=== PATIENT | male | born 1935 | race Caucasian/White ===

== ENCOUNTER 2016-12-24 22:00 | Inpatient (IN) | payer MEDICARE, BC ==
[~2016-12-24] VITALS: Ht 175.3 cm; Wt 88.5 kg
[~2016-12-24 22:00] MED LIST: ACET325T9 PO; ASPI-630 PO; ATOR40TA59 PO; BUPR150T11 PO; CALC1TAB70 PO; CALC667C PO; CHOL10003 PO; CHOL500021 PO; CLIN300C8 PO; CLOP75TA57 PO; CYAN10005 PO; FLUT15.88 NS; FURO-69 PO; INSU100I13 SQ; INSU100I17 SQ; IPRA3AMP NEB; IPRA4AER INH; MAGN400T3 PO; MENT118G TP; NYST15CR TP; OMEP20TA8 PO; [UNRECOGNIZED DRUG - CODE] TP
[2016-12-24] MEDS ORDERED: ACETAMINOPHEN 325 MG TABLET PO PRN ×2 (22:45→23:00)
[2016-12-24] MEDS ORDERED: METHYL SALICYLATE/MENTHOL TOPICAL OINTMENT 29GM TUBE. TP PRN (22:45)
[2016-12-24] MEDS ORDERED: MAGNESIUM HYDROXIDE 2,400 MG/30 ML ORAL.SUSP. PO PRN (22:45)
[2016-12-24] MEDS ORDERED: MAG HYDROX/AL HYDROX/SIMETH 30 ML ORAL.SUSP PO PRN (22:45)
[2016-12-24] MEDS ORDERED: NON FORMULARY ITEM (Menthol (Biofreeze) 118 ML) TP PRN (23:00)
[2016-12-24] MEDS ORDERED: DIMETHICONE TP PRN (23:00)
[2016-12-24] MEDS ORDERED: HYDROcodone/APAP 5/325MG 1 TAB TABLET PO PRN (23:00)
[2016-12-24] MEDS ORDERED: CYCL1DRO EACHEYE (23:37)
[2016-12-24] MEDS ORDERED: PANT40TA5 PO (23:37)
[2016-12-24] MEDS ORDERED: ATOR20TA58 PO (23:37)
[2016-12-24] MEDS ORDERED: HYDR-2758 PO (23:37)
[2016-12-24] MEDS ORDERED: PROP10DR3 EACHEYE (23:37)
[2016-12-24] MEDS ORDERED: FLUT1DIS IH (23:37)
[2016-12-24] MEDS ORDERED: LORA0.5T PO (23:37)
[2016-12-24] MEDS ORDERED: ERGO500027 PO (23:37)
[2016-12-24] MEDS ORDERED: ISOS30TA4 PO (23:37)
[2016-12-24] MEDS ORDERED: ESCITALOPRAM OX10 MG PO (23:37)
[2016-12-24] MEDS ORDERED: GUAI600T6 PO (23:37)
[2016-12-24] MEDS ORDERED: QUET25TA5 PO (23:37)
[2016-12-24] MEDS ORDERED: POLY255P PO (23:37)
[2016-12-24] MEDS ORDERED: TAMS0.4C2 PO (23:37)
[2016-12-24] MEDS ORDERED: DEXT1DRO7 OU (23:37)
[2016-12-24] MEDS ORDERED: ALBUTEROL SULFATE 2.5 MG/3 ML NEBU. NEB PRN (23:45)
[2016-12-24] MEDS ORDERED: POLYVINYL ALCOHOL 1.4% OPHTH SOLUTION 15ML BOTTLE. OU PRN (23:45)
[2016-12-24] MEDS ORDERED: LORazepam 0.5 MG TABLET PO PRN (23:45)
[2016-12-25 00:54] LABS: BASO # 0.1 x10^3/uL (0.0-0.2); BASO % 2 % (0-3); EOS # 0.6 x10^3/uL (0.0-0.7); EOS % 9 % (0-3); HEMATOCRIT 32.4 % (39.0-53.0); HEMOGLOBIN 10.6 g/dL (13.0-17.5); LYMPH % 16 % (24-48); MEAN CORPUSCULAR HEMOGLOBIN 29 pg (25-35); MEAN CORPUSCULAR HGB CONC 33 g/dL (31-37); MEAN CORPUSCULAR VOLUME 88 fL (79-100); MONO # 0.6 x10^3/uL (0.0-1.1); MONO % 9 % (0-9); NEUT % 65 % (31-73); PLATELET COUNT 205 x10^3/uL (140-400); RED CELL DISTRIBUTION WIDTH 15.7 % (11.5-14.5); WHITE BLOOD COUNT 6.2 x10^3/uL (4.0-11.0)
[2016-12-25 01:17] LABS: ALBUMIN 2.2 g/dL (3.4-5.0); ALBUMIN/GLOBULIN RATIO 0.6 (1.0-1.7); CALCIUM 8.2 mg/dL (8.5-10.1); CREATININE 1.9 mg/dL (0.7-1.3); GFR 34.4; MAGNESIUM 1.9 mg/dL (1.8-2.4); TOTAL BILIRUBIN 0.2 mg/dL (0.2-1.0); TOTAL PROTEIN 5.8 g/dL (6.4-8.2)
[2016-12-25 02:32] VITALS: BP 142/64
[2016-12-25 06:36] VITALS: BP 107/65
[2016-12-25 07:21] LABS: BILIRUBIN,URINE NEG (NEG); CLARITY,URINE CLEAR; COLOR,URINE YELLOW; GLUCOSE,URINE NEG (NEG)
[2016-12-25 07:22] LABS: BACTERIA,URINE 0 /HPF (0-FEW); NITRITE,URINE NEG (NEG); RBC,URINE 0 /HPF (0-2); UROBILINOGEN,URINE 0.2 mg/dL (0.2 mg/dL); WBC,URINE 0 /HPF (0-4)
[2016-12-25] MEDS: BUDESONIDE 0.5 MG/2 ML NEBU NEB SCH ×2 (08:00→20:10)
[2016-12-25] MEDS: ALBUTEROL SULFATE 2.5 MG/3 ML NEBU. NEB SCH ×4 (08:00→20:10)
[2016-12-25] MEDS ORDERED: NON FORMULARY ITEM (Fluticasone/Salmeterol (Advair 100-50 Diskus) 1 PUFF) IH SCH (09:00)
[2016-12-25] MEDS ORDERED: CLOPIDOGREL BISULFATE 75 MG TABLET PO SCH (09:00)
[2016-12-25] MEDS ORDERED: ASPIRIN 81 MG TAB.CHEW PO SCH (09:00)
[2016-12-25] MEDS ORDERED: OMEPRAZOLE PO SCH (09:00)
[2016-12-25 09:05] VITALS: BP 149/57
[2016-12-25 10:05] LABS: THYROID STIM HORMONE (TSH) 1.394 uIU/mL (0.358-3.740)
[2016-12-25] MEDS: CALCIUM ACETATE 667 MG CAPSULE PO SCH ×3 (10:54→17:06)
[2016-12-25] MEDS: PANTOPRAZOLE 40 MG TABLET. PO SCH (10:54)
[2016-12-25] MEDS: cycloSPORINE 0.05% OPTH 1 DROP DROPERETTE OU SCH ×2 (10:55→21:31)
[2016-12-25] MEDS: POLYVINYL ALCOHOL 1.4% OPHTH SOLUTION 15ML BOTTLE. OU SCH ×4 (10:55→21:29)
[2016-12-25] MEDS: ESCITALOPRAM 10 MG TABLET. PO SCH (10:55)
[2016-12-25] MEDS: ISOSORBIDE MONONITRATE ER 30 MG TAB.ER.24H PO SCH (10:55)
[2016-12-25] MEDS: QUEtiapine 25 MG TABLET. PO SCH ×2 (10:56→21:24)
[2016-12-25] MEDS: POLYETHYLENE GLYCOL 3350 17 GM PACKET. PO SCH (10:56)
[2016-12-25] MEDS: CALCIUM CARB/VIT D3 500/200 TABLET PO SCH ×2 (10:56→21:24)
[2016-12-25] MEDS: MAGNESIUM OXIDE 400 MG TABLET PO SCH (10:56)
[2016-12-25] MEDS: CYANOCOBALAMIN (VITAMIN B-12) 1,000 MCG TABLET. PO SCH (10:57)
[2016-12-25] MEDS: INSULIN DETEMIR 300 UNITS/3 ML INSULN.PEN. SQ SCH ×2 (10:57→21:24)
[2016-12-25] MEDS: NYSTATIN 100,000 UNIT/GM TOPICAL CREAM 15GM TUBE. TP SCH ×2 (10:57→21:29)
--- NOTE | 2016-12-25 11:22 | PDOC ---
Exam Earl Demential Exam: Earl Note: Please also refer to the separate dictated note~for this date of service dictated separately.~Patient seen individually. Discussed the patient with Nursing staff reviewed the chart.~Reviewed interim history and current functioning. Reviewed vital signs,~Labs/ Radiology~and current medications noted below. Continue current treatment with the changes noted in the dictated addendum note Assessment: Vital Signs: Vital Signs Date Time Temp Pulse Resp B/P (MAP) Pulse Ox O2 Delivery O2 Flow Rate FiO2 12/25/16 09:05 97.7 80 20 149/57 (87) 95 12/25/16 06:36 Room Air I&O Intake and Output 12/25/16 07:00 Intake Total 0 ml Balance 0 ml Intake Oral 0 ml Labs: Laboratory Tests Test 12/24/16 23:59 12/25/16 04:56 12/25/16 07:40 White Blood Count 6.2 x10^3/uL (4.0-11.0) Red Blood Count 3.70 x10^6/uL (4.30-5.70) L Hemoglobin 10.6 g/dL (13.0-17.5) L Hematocrit 32.4 % (39.0-53.0) L Mean Corpuscular Volume 88 fL (79-100) Mean Corpuscular Hemoglobin 29 pg (25-35) Mean Corpuscular Hemoglobin Concent 33 g/dL (31-37) Red Cell Distribution Width 15.7 % (11.5-14.5) H Platelet Count 205 x10^3/uL (140-400) Neutrophils (%) (Auto) 65 % (31-73) Lymphocytes (%) (Auto) 16 % (24-48) L Monocytes (%) (Auto) 9 % (0-9) Eosinophils (%) (Auto) 9 % (0-3) H Basophils (%) (Auto) 2 % (0-3) Neutrophils # (Auto) 4.0 x10^3uL (1.8-7.7) Lymphocytes # (Auto) 1.0 x10^3/uL (1.0-4.8) Monocytes # (Auto) 0.6 x10^3/uL (0.0-1.1) Eosinophils # (Auto) 0.6 x10^3/uL (0.0-0.7) Basophils # (Auto) 0.1 x10^3/uL (0.0-0.2) Sodium Level 143 mmol/L (136-145) Potassium Level 5.0 mmol/L (3.5-5.1) Chloride Level 106 mmol/L (98-107) Carbon Dioxide Level 34 mmol/L (21-32) H Anion Gap 3 (6-14) L Blood Urea Nitrogen 32 mg/dL (8-26) H Creatinine 1.9 mg/dL (0.7-1.3) H Estimated GFR (Cockcroft-Gault) 34.4 BUN/Creatinine Ratio 17 (6-20) Glucose Level 163 mg/dL (70-99) H Calcium Level 8.2 mg/dL (8.5-10.1) L Magnesium Level 1.9 mg/dL (1.8-2.4) Iron Level 33 ug/dL (65-175) L Total Iron Binding Capacity 207 ug/dL (250-450) L Iron Saturation 16 % (15-34) Total Bilirubin 0.2 mg/dL (0.2-1.0) Aspartate Amino Transferase (AST) 11 U/L (15-37) L Alanine Aminotransferase (ALT) 12 U/L (16-63) L Alkaline Phosphatase 90 U/L (46-116) Total Protein 5.8 g/dL (6.4-8.2) L Albumin 2.2 g/dL (3.4-5.0) L Albumin/Globulin Ratio 0.6 (1.0-1.7) L Triglycerides Level 122 mg/dL (0-150) Cholesterol Level 102 mg/dL (0-200) LDL Cholesterol, Calculated 45 mg/dL (0-100) VLDL Cholesterol, Calculated 24 mg/dL (0-40) Non-HDL Cholesterol Calculated 69 mg/dL (0-129) HDL Cholesterol 33 mg/dL (40-60) L Cholesterol/HDL Ratio 3.0 Thyroid Stimulating Hormone (TSH) 1.394 uIU/mL (0.358-3.740) Urine Collection Type Unknown Urine Color Yellow Urine Clarity Clear Urine pH 7.5 Urine Specific [place] 1.015 Urine Protein >100 mg/dl (NEG-TRACE) Urine Glucose (UA) Neg mg/dL (NEG) Urine Ketones (Stick) Neg mg/dL (NEG) Urine Blood Neg (NEG) Urine Nitrite Neg (NEG) Urine Bilirubin Neg (NEG) Urine Urobilinogen Dipstick 0.2 mg/dL (0.2 mg/dL) Urine Leukocyte Esterase Neg (NEG) Urine RBC 0 /HPF (0-2) Urine WBC 0 /HPF (0-4) Urine Squamous Epithelial Cells None /LPF Urine Bacteria 0 /HPF (0-FEW) Glucose (Fingerstick) 96 mg/dL (70-99) Current Medications: Meds: Current Medications Acetaminophen (Tylenol) 650 mg PRN Q6HRS PRN PO PAIN / TEMP; Start 12/24/16 at 22:45 Multi-Ingredient Ointment (Analgesic [place]) 1 tiny PRN QID PRN TP MUSCLE PAIN; Start 12/24/16 at 22:45 Al Hydroxide/Mg Hydroxide (Mylanta Plus Xs) 15 ml PRN AFTMEALHC PRN PO DYSPEPSIA; Start 12/24/16 at 22:45; Status Cancel Magnesium Hydroxide (Milk Of Magnesia) 2,400 mg PRN QHS PRN PO CONSTIPATION; Start 12/24/16 at 22:45; Status Cancel Acetaminophen (Tylenol) 650 mg PRN Q6HRS PRN PO PAIN / TEMP; Start 12/24/16 at 23:00; Status UNV Aspirin (Children'S Aspirin) 81 mg DAILY PO ; Start 12/25/16 at 09:00 Atorvastatin Calcium (Lipitor) 20 mg QHS PO ; Start 12/25/16 at 21:00 Calcium Acetate (Phoslo) 667 mg TIDWMEALS PO ; Start 12/25/16 at 08:00 Calcium/Vitamin D (Oscal D 500mg/ 200uts) 1 tab BID PO ; Start 12/25/16 at 09:00 Clopidogrel Bisulfate (Plavix) 75 mg DAILY PO ; Start 12/25/16 at 09:00 Cyanocobalamin (Vitamin B-12) 1,000 mcg DAILY PO ; Start 12/25/16 at 09:00 Cyclosporine (Restasis) 1 drop BID OU ; Start 12/25/16 at 09:00 Ergocalciferol (Vitamin D2) 50,000 unit QWE PO ; Start 12/29/16 at 16:00 Furosemide (Lasix) 40 mg QODAY PO ; Start 12/26/16 at 09:00 Guaifenesin (Mucinex Er) 600 mg BID PO ; Start 12/25/16 at 09:00 Acetaminophen/ Hydrocodone Bitart (Lortab 5/325) 1 tab PRN Q6HRS PRN PO SEVERE PAIN; Start 12/24/16 at 23:00 Albuterol Sulfate (Ventolin) 2.5 mg PRN Q6HRS PRN NEB SHORTNESS OF BREATH; Start 12/24/16 at 23:45 Isosorbide Mononitrate (Imdur) 30 mg DAILY PO ; Start 12/25/16 at 09:00 Magnesium Oxide (Magnesium Oxide) 400 mg DAILY PO ; Start 12/25/16 at 09:00 Nystatin (Mycostatin) 1 tiny BID TP ; Start 12/25/16 at 09:00 Pantoprazole Sodium (Protonix) 40 mg DAILYAC PO ; Start 12/25/16 at 07:30 Polyethylene Glycol (miraLAX) 17 gm DAILY PO ; Start 12/25/16 at 09:00 Tamsulosin HCl (Flomax) 0.4 mg HS PO ; Start 12/25/16 at 21:00 Artificial Tears (Artificial Tears) 1 drop QID OU ; Start 12/25/16 at 09:00 Non-Formulary Medication 59 ml PRN DAILY PRN TP DRY SKIN / SCALING; Start at 23:00; Status UNV Non-Formulary Medication 1 puff BID IH ; Start 12/25/16 at 09:00; Stop 12/25/16 at 09:00; Status DC Insulin Detemir (Levemir) 10 units BID SQ ; Start 12/25/16 at 09:00 Non-Formulary Medication 118 ml PRN Q6HRS PRN TP PAIN; Start 12/24/16 at 23:00; Stop 12/24/16 at 23:51; Status DC Non-Formulary Medication 2 tab DAILY PO ; Start 12/25/16 at 09:00; Stop at 09:00; Status DC Artificial Tears (Artificial Tears) 1 drop PRN Q8HRS PRN OU DRY EYE; Start 12/24 at 23:45 Escitalopram Oxalate (Lexapro) 10 mg DAILY PO ; Start 12/25/16 at 09:00 Lorazepam (Ativan) 0.5 mg PRN Q8HRS PRN PO ANXIETY / AGITATION Last administered on 12/25/16t 09:23; Start 12/24/16 at 23:45 Quetiapine Fumarate (SEROquel) 12.5 mg BID PO ; Start 12/25/16 at 09:00 Albuterol Sulfate (Ventolin) 2.5 mg RTQID NEB ; Start 12/25/16 at 08:00 Budesonide (Pulmicort) 0.5 mg RTBID NEB ; Start 12/25/16 at 08:00 Olanzapine (ZyPREXA ZYDIS) 2.5 mg PRN Q2HR PRN PO ANXIETY / AGITATION; Start at 04:15 Haloperidol Lactate (Haldol) 5 mg 1X STAT IM ; Start 12/25/16 at 11:17; Stop at 11:18; Status UNV Active Scripts Active Reported Vitamin D2 (Ergocalciferol (Vitamin D2)) 50,000 Unit Capsule 50,000 Unit PO QWE Tamsulosin Hcl 0.4 Mg Cap.er.24h 0.4 Mg PO HS Systane Ultra 0.4-0.3% Eye Drp (Propylene Glycol/Peg 400) 10 Ml Drops 1 Drop EACHEYE PRN Q8HRS PRN Seroquel (Quetiapine Fumarate) 25 Mg Tablet 12.5 Mg PO BID Restasis (Cyclosporine) 1 Each Droperette 1 Drop EACHEYE BID Polyethylene Glycol 3350 255 Gm Powder 17 Gm PO DAILY Pantoprazole Sodium 40 Mg Tablet.dr 40 Mg PO DAILY Mucus ER (Guaifenesin) 600 Mg Tab.er.12h 600 Mg PO BID Hydrocodone-Apap 5-325 (Hydrocodone Bit/Acetaminophen) 1 Each Tablet 1 Tab PO PRN Q6HRS PRN Lorazepam 0.5 Mg Tablet 0.5 Mg PO PRN Q8HRS PRN Escitalopram Oxalate 10 Mg Tablet 10 Mg PO DAILY Isosorbide Mononitrate Er (Isosorbide Mononitrate) 30 Mg Tab.er.24h 30 Mg PO DAILY Artificial Tears (Dextran 70/Hypromellose) 1 Each Droperette 1 Each OP QID Advair 100-50 Diskus (Fluticasone/Salmeterol) 1 Each Disk.w.dev 1 Puff IH BID Furosemide 40 Mg Tablet 40 Mg PO QODAY Atorvastatin Calcium 20 Mg Tablet 20 Mg PO QHS Plavix (Clopidogrel Bisulfate) 75 Mg Tablet 1 Tab PO DAILY Oyster Shell 500 Mg + Vit D Tb (Calcium Carbonate/Vitamin D3) 1 Each Tablet 1 Each PO BID Omeprazole 20 Mg Tablet.dr 2 Tab PO DAILY Nystatin 15 Gm Cream..g. 1 Tiny TP BID Magnesium Oxide 400 Mg Tablet 1 Tab PO DAILY Lantus Solostar (Insulin Glargine,Hum.rec.anlog) 100 Unit/1 Ml Insuln.pen 10 Unit SQ BID Duoneb 0.5-3(2.5) Mg/3 Ml (Albuterol/Ipratropium) 3 Ml Ampul.neb 3 Ml NEB PRN Q6HRS PRN Vitamin B-12 (Cyanocobalamin (Vitamin B-12)) 1,000 Mcg Tablet 1 Tab PO DAILY Calcium Acetate 667 Mg Capsule 667 Mg PO TIDWMEALS Biofreeze (Menthol) 118 Ml Gel..ml. 118 Ml TP PRN Q6HRS PRN Aspirin 81 Mg Tab.chew 81 Mg PO DAILY Aloe [place] Skin Conditioner 2 (Dimethicone) 59 Ml Lotion 59 Ml TP PRN DAILY PRN Tylenol (Acetaminophen) 325 Mg Tablet 650 Mg PO PRN Q6HRS PRN KATERINE TANG MD Dec 25, 2016 11:22
[2016-12-25] MEDS ORDERED: HALOPERIDOL LACT 5 MG/ML VIAL. IM STA (11:28)
[2016-12-25 12:08] LABS: T3 TOTAL 83 ng/dL (71-180); THYROXINE 5.7 ug/dL (4.5-12.0)
--- NOTE | 2016-12-25 15:12 | RAD ---
Indication fall. Headache. Dizziness. Noncontrast images of the head were obtained. Note is made of a previous examination 03/15/2016. The study is slightly degraded by motion Soft tissue injury over the left forehead is noted. An acute calvarial finding is not seen. There is some mucosal thickening seen associated with both maxillary sinuses and partial opacification of the left sphenoid sinus and left ethmoid air cells. Findings suggest sinusitis. There is no subdural or epidural hematoma. There is underlying atrophy. There is increased lucency in the deep white matter compatible with microvascular disease. There is no mass or midline shift. No hemorrhage is seen. Acute intracranial finding is not apparent. IMPRESSION: Slightly limited study secondary to motion. No acute intracranial finding seen. Chronic changes in the head are noted. Suspect sinusitis PQRS Compliance Statement: One or more of the following individualized dose reduction techniques were utilized for this examination: 1. Automated exposure control 2. Adjustment of the mA and/or kV according to patient size 3. Use of iterative reconstruction technique
[2016-12-25 16:02] VITALS: BP 129/58
[2016-12-25 17:08] LABS: HEMOGLOBIN A1C 6.1 % (4.8-5.6)
--- NOTE | 2016-12-25 19:04 | EKG ---
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
--- NOTE | 2016-12-25 20:47 | HP ---
ADMIT DATE: 12/25/2016 PSYCHIATRIC ADMISSION HISTORY/EVALUATION IDENTIFYING DATA: The patient is a 81-year-old male who was admitted as an emergency by the Emergency Room at [facility] after he was referred there from [facility] on account of repeatedly putting himself on the floor when he does not get his way. He was refusing medications, verbally abusive to staff, and caregivers. Reportedly, he does not like his diet, which is pureed, refuses to eat it. He has been more confused, psychotic, aggressive, and has failed outpatient psychiatric interventions, referred by Dr. Quintero for inpatient psychiatric stabilization. 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 He has been residing at [facility] for some time. He was previously admitted to ICU via the ER once he became aggressive at the [facility], but then this was in 02/2016. In the ICU, he was stabilized return back to the [place] and I followed him there. Over the past several days, he has been increasingly agitated, angry, and belligerent. He has had some sleep and appetite changes. Refusing to answer questions. No clear symptoms of bipolar disorder, suicidal, or homicidal ideation. PAST PSYCHIATRIC HISTORY: As above. MEDICAL HISTORY: Positive for congestive heart failure. In fact, the patient was admitted directly from the [place] [facility] as he was felt to be medically stable at the [facility]. Medical history is otherwise positive for subdural hematomas by history of GERD, diabetes mellitus, hypertension, status post pneumonia, status post recurrent UTIs. PAST SURGICAL HISTORY: Noncontributory. DRUG ALLERGIES: PENICILLIN. CODE STATUS: DNR. FAMILY HISTORY: Noncontributory. CURRENT PSYCHOTROPICS: Lexapro 10 mg a day, Ativan 0.5 mg q.8 hours p.r.n., Seroquel 12.5 mg b.i.d. MENTAL STATUS EXAM: The patient was seen individually in his room the evening of 12/25/2016. He has been quite sedated because he fell earlier in the day sustained a scalp hematoma. Dr. Bhatti was consulted. CT head negative and he is on one-on-one status to monitor neuro checks and vital signs. He also received 5 mg of Haldol and is quite sedated. He seems to recognize the nursing clinical director who is also taking care of him at the [facility] and now works here. Not verbal at all as I met with him sedated. Insight, judgment, recent memory is impaired. Language function intact. Attention span short. Mood and affect remains somewhat withdrawn at this time, but was quite labile earlier in the day, but this note covers elements not covered in my initial note. IMPRESSION: Major neurocognitive disorder, Alzheimer, vascular with depression, delusion, behavioral disturbance; anxiety disorder, unspecified; impulse control disorder, unspecified; history of major depressive disorder with psychotic features. Rest of diagnoses as above, status post fall with scalp hematoma. TREATMENT PLAN: Admit to the geropsychiatry unit. I will see the patient daily individually from a psychiatric standpoint medical followup per Dr. Sanders/Dr. Bhatti. Continue current psychotropics. Add Zyprexa p.r.n. Consider Depakote as a mood stabilizer for his aggression and make further changes depending on his progress. KATERINE TANG MD DR: GRETCHEN/errol JOB#: [id number] / [id number]
[2016-12-25] MEDS: TAMSULOSIN 0.4 MG CAP.ER.24H. PO SCH (21:29)
[2016-12-25] MEDS: ATORVASTATIN CALCIUM 20 MG TABLET PO SCH (21:29)
--- NOTE | 2016-12-26 01:42 | CONS ---
DATE OF CONSULTATION: 12/25/2016 REASON FOR CONSULTATION: Medical management. HISTORY OF PRESENT ILLNESS: This is a 81-year-old male patient, a resident at [facility] in [place], who was [facility] on the account of worsening agitation, combativeness, noncompliance, anger, apparently putting himself on the floor when not getting his way, refusing meals and verbally abusive to the staff and caregivers. He does not like his diet, which is pureed and refuses to eat it. When we entered his room, he was very angry, threatening and has already fallen and has had a hematoma on the left forehead and therefore, I could not really examine him properly for fear that he might fall again. PAST MEDICAL HISTORY: Significant for hypertension, congestive heart failure, COPD, chronic subdural hematoma, macular degeneration, type 2 diabetes and dry eye. He is also known to have gastroesophageal reflux disease, benign prostatic hypertrophy, has had recent pneumonia, bradycardia, and major depressive disorder. He is also obviously known to have dementia with behavioral disorder. PAST SURGICAL HISTORY: Unobtainable. ALLERGIES: He is allergic to PENICILLIN. MEDICATIONS: He is currently on following medications: He is on Tylenol 650 mg every 6 hours, aspirin 81 mg once a day, atorvastatin calcium 20 mg at bedtime, calcium acetate 667 mg 3 times a day with meals, Plavix 75 mg once a day, cyanocobalamin 1000 mcg tablet once a day, cyclosporine for Restasis 1 drop to both eyes twice a day, artificial tears 1 drop to both eyes 4 times a day, Dimethicone for Aloe [place] skin conditioner topically daily p.r.n., ergocalciferol for vitamin D2 50,000 units p.o. once a week, citalopram oxalate 10 mg daily, Advair Diskus 100/50 one puff twice a day, furosemide 40 mg once every other day, Mucinex 600 mg twice a day, hydrocodone/APAP 5/325 one tablet every 6 hours. He is on Lantus insulin 10 units twice a day, ipratropium bromide-albuterol inhaler 0.5-2.5 mg in 3 mL by nebulizer every 6 hours, isosorbide mononitrate 30 mg once a day, lorazepam 0.5 mg every 8 hours, magnesium oxide 400 mg once a day, omeprazole 20 mg once a day, nystatin cream applied topically twice a day, Protonix 40 mg once a day, polyethylene glycol 17 grams p.o. daily, Systane eye drops 1 drop to both eyes every 8 hours as needed, Seroquel 12.5 mg twice a day and Flomax 0.4 mg at bedtime. FAMILY HISTORY: Unobtainable. SOCIAL HISTORY: He is apparently a resident at [facility], no further details are available. PHYSICAL EXAMINATION: GENERAL: When I examined him this afternoon, he was sitting slightly propped up in his bed, in no apparent distress, slightly pale, but no jaundice, cyanosis, or thyromegaly. No jugular venous distention. No limb edema. VITAL SIGNS: His heart rate was 80, blood pressure 149/57, temperature was 97.7, respiratory rate 20, and oxygen saturation was 95%. HEENT: I could not really examine him; however, he has clearcut subcutaneous hematoma on the left forehead. He was extremely angry and agitated and threatening to john us out of the room. NEUROLOGIC: All his cranial nerves seem to be intact. He moves all extremities without difficulty or lateralizing sign. LABORATORY DATA: Showed a white cell count of 6200, hemoglobin 10.6, hematocrit 32, MCV 88, and platelet count of 205,000. His chemistry showed a serum sodium 143, potassium 5, chloride 106, bicarbonate 34, anion gap of 3, BUN 32, creatinine 1.9, estimated GFR was 34 mL per minute, his glucose 163, calcium was 8.2, magnesium was 1.9. Total bilirubin, AST, ALT, alkaline phosphatase were normal. Total protein was 5.8, albumin 2.2. His triglycerides were 122, total cholesterol was 102, LDL cholesterol was 45, VLDL was 24, and HDL cholesterol was 33. His cholesterol to HDL cholesterol ratio was 3. His TSH was 1.394, total T4 was 5.7, total T3 was 83. Serum iron was 33, total iron binding capacity was 207 and percent saturation was 16%. Urinalysis was essentially unremarkable. ASSESSMENT: He apparently fell this morning and we did a stat CT scan of the head without contrast. Given the fact that he is known to have chronic subdural hematoma he is on aspirin and Plavix. The CT scan was not read by the time I dictated this consult. I will probably start him on one-to-one sitter given how agitated and aggressive he was. We will await the result of the CT scan report and if there is any evidence of subdural hematoma, we might have to contact the Neurosurgical team; otherwise, I will probably hold his aspirin and Plavix for now; continue with other medication. Thank you, Dr. Lang for allowing me to participate in the care of this patient. SAMINA DESOUZA MD DR: RADHA/errol JOB#: [id number] / [id number]
[2016-12-26] MEDS: ALBUTEROL SULFATE 2.5 MG/3 ML NEBU. NEB SCH ×4 (05:18→19:54)
[2016-12-26 06:15] VITALS: BP 151/84
[2016-12-26] MEDS: CALCIUM CARB/VIT D3 500/200 TABLET PO SCH ×2 (08:34→19:46)
[2016-12-26] MEDS: CYANOCOBALAMIN (VITAMIN B-12) 1,000 MCG TABLET. PO SCH (08:34)
[2016-12-26] MEDS: MAGNESIUM OXIDE 400 MG TABLET PO SCH (08:34)
[2016-12-26] MEDS: POLYETHYLENE GLYCOL 3350 17 GM PACKET. PO SCH (08:35)
[2016-12-26] MEDS: QUEtiapine 25 MG TABLET. PO SCH ×2 (08:35→19:47)
[2016-12-26] MEDS: cycloSPORINE 0.05% OPTH 1 DROP DROPERETTE OU SCH ×2 (08:35→19:46)
[2016-12-26] MEDS: ESCITALOPRAM 10 MG TABLET. PO SCH (08:35)
[2016-12-26] MEDS: ISOSORBIDE MONONITRATE ER 30 MG TAB.ER.24H PO SCH (08:35)
[2016-12-26] MEDS: PANTOPRAZOLE 40 MG TABLET. PO SCH (08:35)
[2016-12-26] MEDS: FUROSEMIDE 40 MG TABLET PO SCH (08:41)
[2016-12-26] MEDS: INSULIN DETEMIR 300 UNITS/3 ML INSULN.PEN. SQ SCH ×2 (08:44→19:50)
[2016-12-26] MEDS: NYSTATIN 100,000 UNIT/GM TOPICAL CREAM 15GM TUBE. TP SCH ×2 (11:18→19:48)
[2016-12-26] MEDS: CALCIUM ACETATE 667 MG CAPSULE PO SCH ×3 (11:18→17:48)
[2016-12-26] MEDS: POLYVINYL ALCOHOL 1.4% OPHTH SOLUTION 15ML BOTTLE. OU SCH ×4 (11:18→20:00)
[2016-12-26] MEDS: BUDESONIDE 0.5 MG/2 ML NEBU NEB SCH ×2 (11:34→19:54)
[2016-12-26 16:39] VITALS: BP 112/64
[2016-12-26] MEDS: ATORVASTATIN CALCIUM 20 MG TABLET PO SCH (19:46)
[2016-12-26] MEDS: TAMSULOSIN 0.4 MG CAP.ER.24H. PO SCH (19:46)
--- NOTE | 2016-12-26 21:22 | PDOC ---
Exam Earl Demential Exam: Earl Note: Please also refer to the separate dictated note~for this date of service dictated separately.~Patient seen individually. Discussed the patient with Nursing staff reviewed the chart.~Reviewed interim history and current functioning. Reviewed vital signs,~Labs/ Radiology~and current medications noted below. Continue current treatment with the changes noted in the dictated addendum note Assessment: Vital Signs: Vital Signs Date Time Temp Pulse Resp B/P (MAP) Pulse Ox O2 Delivery O2 Flow Rate FiO2 12/26/16 16:39 97.2 56 16 112/64 (80) 92 12/26/16 11:35 Room Air I&O Intake and Output 12/26/16 07:00 Intake Total 120 ml Balance 120 ml Intake Oral 120 ml # Bowel Movements 2 Labs: Laboratory Tests Test 12/26/16 07:18 12/26/16 11:51 12/26/16 17:04 12/26/16 19:23 Glucose (Fingerstick) 100 mg/dL (70-99) H 150 mg/dL (70-99) H 151 mg/dL (70-99) H 132 mg/dL (70-99) H Current Medications: Meds: Current Medications Acetaminophen (Tylenol) 650 mg PRN Q6HRS PRN PO PAIN / TEMP; Start 12/24/16 at 22:45 Multi-Ingredient Ointment (Analgesic [place]) 1 tiny PRN QID PRN TP MUSCLE PAIN; Start 12/24/16 at 22:45 Al Hydroxide/Mg Hydroxide (Mylanta Plus Xs) 15 ml PRN AFTMEALHC PRN PO DYSPEPSIA; Start 12/24/16 at 22:45; Status Cancel Magnesium Hydroxide (Milk Of Magnesia) 2,400 mg PRN QHS PRN PO CONSTIPATION; Start 12/24/16 at 22:45; Status Cancel Acetaminophen (Tylenol) 650 mg PRN Q6HRS PRN PO PAIN / TEMP; Start 12/24/16 at 23:00; Status UNV Aspirin (Children'S Aspirin) 81 mg DAILY PO ; Start 12/25/16 at 09:00; Stop 05/03 at 14:18; Status DC Atorvastatin Calcium (Lipitor) 20 mg QHS PO Last administered on 12/26/16t 19: 46; Start 12/25/16 at 21:00 Calcium Acetate (Phoslo) 667 mg TIDWMEALS PO Last administered on 12/26/16 17: 48; Start 12/25/16 at 08:00 Calcium/Vitamin D (Oscal D 500mg/ 200uts) 1 tab BID PO Last administered on 19:46; Start 12/25/16 at 09:00 Clopidogrel Bisulfate (Plavix) 75 mg DAILY PO ; Start 12/25/16 at 09:00; Stop at 14:18; Status DC Cyanocobalamin (Vitamin B-12) 1,000 mcg DAILY PO Last administered on 08:34; Start 12/25/16 at 09:00 Cyclosporine (Restasis) 1 drop BID OU Last administered on 12/26/16 19:46; Start 12/25/16 at 09:00 Ergocalciferol (Vitamin D2) 50,000 unit QWE PO ; Start 12/29/16 at 16:00 Furosemide (Lasix) 40 mg QODAY PO Last administered on 12/26/16 08:41; Start 12/26/16 at 09:00 Guaifenesin (Mucinex Er) 600 mg BID PO Last administered on 12/26/16 19:47; Start 12/25/16 at 09:00 Acetaminophen/ Hydrocodone Bitart (Lortab 5/325) 1 tab PRN Q6HRS PRN PO SEVERE PAIN; Start 12/24/16 at 23:00 Albuterol Sulfate (Ventolin) 2.5 mg PRN Q6HRS PRN NEB SHORTNESS OF BREATH; Start 12/24/16 at 23:45 Isosorbide Mononitrate (Imdur) 30 mg DAILY PO Last administered on 12/26/16 08 :35; Start 12/25/16 at 09:00 Magnesium Oxide (Magnesium Oxide) 400 mg DAILY PO Last administered on 08:34; Start 12/25/16 at 09:00 Nystatin (Mycostatin) 1 tiny BID TP Last administered on 12/26/16 19:48; Start 12/25/16 at 09:00 Pantoprazole Sodium (Protonix) 40 mg DAILYAC PO Last administered on 12/26/16 08:35; Start 12/25/16 at 07:30 Polyethylene Glycol (miraLAX) 17 gm DAILY PO Last administered on 12/26/16 08: 35; Start 12/25/16 at 09:00 Tamsulosin HCl (Flomax) 0.4 mg HS PO Last administered on 12/26/16 19:46; Start 12/25/16 at 21:00 Artificial Tears (Artificial Tears) 1 drop QID OU Last administered on 20:00; Start 12/25/16 at 09:00 Non-Formulary Medication 59 ml PRN DAILY PRN TP DRY SKIN / SCALING; Start at 23:00; Status UNV Non-Formulary Medication 1 puff BID IH ; Start 12/25/16 at 09:00; Stop 12/25/16 at 09:00; Status DC Insulin Detemir (Levemir) 10 units BID SQ Last administered on 12/26/16 19:50 ; Start 12/25/16 at 09:00 Non-Formulary Medication 118 ml PRN Q6HRS PRN TP PAIN; Start 12/24/16 at 23:00; Stop 12/24/16 at 23:51; Status DC Non-Formulary Medication 2 tab DAILY PO ; Start 12/25/16 at 09:00; Stop at 09:00; Status DC Artificial Tears (Artificial Tears) 1 drop PRN Q8HRS PRN OU DRY EYE; Start 12/24 at 23:45 Escitalopram Oxalate (Lexapro) 10 mg DAILY PO Last administered on 12/26/16 08 :35; Start 12/25/16 at 09:00 Lorazepam (Ativan) 0.5 mg PRN Q8HRS PRN PO ANXIETY / AGITATION Last administered on 12/25/16 09:23; Start 12/24/16 at 23:45 Quetiapine Fumarate (SEROquel) 12.5 mg BID PO Last administered on 12/26/16 19 :47; Start 12/25/16 at 09:00 Albuterol Sulfate (Ventolin) 2.5 mg RTQID NEB Last administered on 12/26/16 11 :34; Start 12/25/16 at 08:00 Budesonide (Pulmicort) 0.5 mg RTBID NEB Last administered on 12/26/16 11:34; Start 12/25/16 at 08:00 Olanzapine (ZyPREXA ZYDIS) 2.5 mg PRN Q2HR PRN PO ANXIETY / AGITATION; Start at 04:15 Haloperidol Lactate (Haldol) 5 mg 1X STAT IM Last administered on 12/25/16t 11 :28; Start 12/25/16 at 11:28; Stop 12/25/16 at 11:29; Status DC Active Scripts Active Reported Vitamin D2 (Ergocalciferol (Vitamin D2)) 50,000 Unit Capsule 50,000 Unit PO QWE Tamsulosin Hcl 0.4 Mg Cap.er.24h 0.4 Mg PO HS Systane Ultra 0.4-0.3% Eye Drp (Propylene Glycol/Peg 400) 10 Ml Drops 1 Drop EACHEYE PRN Q8HRS PRN Seroquel (Quetiapine Fumarate) 25 Mg Tablet 12.5 Mg PO BID Restasis (Cyclosporine) 1 Each Droperette 1 Drop EACHEYE BID Polyethylene Glycol 3350 255 Gm Powder 17 Gm PO DAILY Pantoprazole Sodium 40 Mg Tablet.dr 40 Mg PO DAILY Mucus ER (Guaifenesin) 600 Mg Tab.er.12h 600 Mg PO BID Hydrocodone-Apap 5-325 (Hydrocodone Bit/Acetaminophen) 1 Each Tablet 1 Tab PO PRN Q6HRS PRN Lorazepam 0.5 Mg Tablet 0.5 Mg PO PRN Q8HRS PRN Escitalopram Oxalate 10 Mg Tablet 10 Mg PO DAILY Isosorbide Mononitrate Er (Isosorbide Mononitrate) 30 Mg Tab.er.24h 30 Mg PO DAILY Artificial Tears (Dextran 70/Hypromellose) 1 Each Droperette 1 Each OP QID Advair 100-50 Diskus (Fluticasone/Salmeterol) 1 Each Disk.w.dev 1 Puff IH BID Furosemide 40 Mg Tablet 40 Mg PO QODAY Atorvastatin Calcium 20 Mg Tablet 20 Mg PO QHS Plavix (Clopidogrel Bisulfate) 75 Mg Tablet 1 Tab PO DAILY Oyster Shell 500 Mg + Vit D Tb (Calcium Carbonate/Vitamin D3) 1 Each Tablet 1 Each PO BID Omeprazole 20 Mg Tablet.dr 2 Tab PO DAILY Nystatin 15 Gm Cream..g. 1 Tiny TP BID Magnesium Oxide 400 Mg Tablet 1 Tab PO DAILY Lantus Solostar (Insulin Glargine,Hum.rec.anlog) 100 Unit/1 Ml Insuln.pen 10 Unit SQ BID Duoneb 0.5-3(2.5) Mg/3 Ml (Albuterol/Ipratropium) 3 Ml Ampul.neb 3 Ml NEB PRN Q6HRS PRN Vitamin B-12 (Cyanocobalamin (Vitamin B-12)) 1,000 Mcg Tablet 1 Tab PO DAILY Calcium Acetate 667 Mg Capsule 667 Mg PO TIDWMEALS Biofreeze (Menthol) 118 Ml Gel..ml. 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
[2016-12-26] MEDS ORDERED: FURO40TA4 PO (23:37)
[2016-12-27] MEDS: ALBUTEROL SULFATE 2.5 MG/3 ML NEBU. NEB SCH ×4 (05:03→20:30)
[2016-12-27 06:26] VITALS: BP 178/54
[2016-12-27] MEDS: cycloSPORINE 0.05% OPTH 1 DROP DROPERETTE OU SCH ×2 (07:13→21:54)
[2016-12-27] MEDS: ESCITALOPRAM 10 MG TABLET. PO SCH (07:13)
[2016-12-27] MEDS: QUEtiapine 25 MG TABLET. PO SCH ×2 (07:13→20:39)
[2016-12-27] MEDS: PANTOPRAZOLE 40 MG TABLET. PO SCH (07:13)
[2016-12-27] MEDS: CYANOCOBALAMIN (VITAMIN B-12) 1,000 MCG TABLET. PO SCH (07:14)
[2016-12-27] MEDS: POLYETHYLENE GLYCOL 3350 17 GM PACKET. PO SCH (07:14)
[2016-12-27] MEDS: MAGNESIUM OXIDE 400 MG TABLET PO SCH (07:14)
[2016-12-27] MEDS: CALCIUM CARB/VIT D3 500/200 TABLET PO SCH ×2 (07:14→20:40)
[2016-12-27] MEDS: CALCIUM ACETATE 667 MG CAPSULE PO SCH ×3 (07:19→17:18)
[2016-12-27] MEDS: NYSTATIN 100,000 UNIT/GM TOPICAL CREAM 15GM TUBE. TP SCH ×2 (07:19→20:40)
[2016-12-27] MEDS: POLYVINYL ALCOHOL 1.4% OPHTH SOLUTION 15ML BOTTLE. OU SCH ×4 (07:21→21:54)
[2016-12-27] MEDS: ISOSORBIDE MONONITRATE ER 30 MG TAB.ER.24H PO SCH (07:26)
[2016-12-27 07:30] VITALS: BP 150/54
[2016-12-27] MEDS: BUDESONIDE 0.5 MG/2 ML NEBU NEB SCH ×2 (08:00→20:30)
[2016-12-27] MEDS: INSULIN DETEMIR 300 UNITS/3 ML INSULN.PEN. SQ SCH ×2 (08:18→20:28)
[2016-12-27 16:00] VITALS: BP 130/73
[2016-12-27] MEDS: TAMSULOSIN 0.4 MG CAP.ER.24H. PO SCH (20:39)
[2016-12-27] MEDS: ATORVASTATIN CALCIUM 20 MG TABLET PO SCH (20:40)
--- NOTE | 2016-12-27 23:34 | PDOC ---
Exam Earl Demential Exam: Earl Note: Please also refer to the separate dictated note~for this date of service dictated separately.~Patient seen individually. Discussed the patient with Nursing staff reviewed the chart.~Reviewed interim history and current functioning. Reviewed vital signs,~Labs/ Radiology~and current medications noted below. Continue current treatment with the changes noted in the dictated addendum note Assessment: Vital Signs: Vital Signs Date Time Temp Pulse Resp B/P (MAP) Pulse Ox O2 Delivery O2 Flow Rate FiO2 12/27/16 20:31 94 Room Air 12/27/16 16:00 97.8 67 18 130/73 (92) I&O Intake and Output 12/27/16 07:00 Intake Total 880 ml Balance 880 ml Intake Oral 880 ml Labs: Laboratory Tests Test 12/27/16 07:28 Glucose (Fingerstick) 126 mg/dL (70-99) H Current Medications: Meds: Current Medications Acetaminophen (Tylenol) 650 mg PRN Q6HRS PRN PO PAIN / TEMP; Start 12/24/16 at 22:45 Multi-Ingredient Ointment (Analgesic [place]) 1 tiny PRN QID PRN TP MUSCLE PAIN; Start 12/24/16 at 22:45 Al Hydroxide/Mg Hydroxide (Mylanta Plus Xs) 15 ml PRN AFTMEALHC PRN PO DYSPEPSIA; Start 12/24/16 at 22:45; Status Cancel Magnesium Hydroxide (Milk Of Magnesia) 2,400 mg PRN QHS PRN PO CONSTIPATION; Start 12/24/16 at 22:45; Status Cancel Acetaminophen (Tylenol) 650 mg PRN Q6HRS PRN PO PAIN / TEMP; Start 12/24/16 at 23:00; Status UNV Aspirin (Children'S Aspirin) 81 mg DAILY PO ; Start 12/25/16 at 09:00; Stop 05/03 at 14:18; Status DC Atorvastatin Calcium (Lipitor) 20 mg QHS PO Last administered on 12/27/16 20: 40; Start 12/25/16 at 21:00 Calcium Acetate (Phoslo) 667 mg TIDWMEALS PO Last administered on 12/27/16 17: 18; Start 12/25/16 at 08:00 Calcium/Vitamin D (Oscal D 500mg/ 200uts) 1 tab BID PO Last administered on 20:40; Start 12/25/16 at 09:00 Clopidogrel Bisulfate (Plavix) 75 mg DAILY PO ; Start 12/25/16 at 09:00; Stop at 14:18; Status DC Cyanocobalamin (Vitamin B-12) 1,000 mcg DAILY PO Last administered on 07:14; Start 12/25/16 at 09:00 Cyclosporine (Restasis) 1 drop BID OU Last administered on 12/27/16 21:54; Start 12/25/16 at 09:00 Ergocalciferol (Vitamin D2) 50,000 unit QWE PO ; Start 12/29/16 at 16:00 Furosemide (Lasix) 40 mg QODAY PO Last administered on 12/26/16 08:41; Start 12/26/16 at 09:00 Guaifenesin (Mucinex Er) 600 mg BID PO Last administered on 12/27/16 20:39; Start 12/25/16 at 09:00 Acetaminophen/ Hydrocodone Bitart (Lortab 5/325) 1 tab PRN Q6HRS PRN PO SEVERE PAIN; Start 12/24/16 at 23:00 Albuterol Sulfate (Ventolin) 2.5 mg PRN Q6HRS PRN NEB SHORTNESS OF BREATH Last administered on 12/27/16 16:39; Start 12/24/16 at 23:45 Isosorbide Mononitrate (Imdur) 30 mg DAILY PO Last administered on 12/27/16 07 :26; Start 12/25/16 at 09:00 Magnesium Oxide (Magnesium Oxide) 400 mg DAILY PO Last administered on 07:14; Start 12/25/16 at 09:00 Nystatin (Mycostatin) 1 tiny BID TP Last administered on 12/27/16 20:40; Start 12/25/16 at 09:00 Pantoprazole Sodium (Protonix) 40 mg DAILYAC PO Last administered on 12/27/16 07:13; Start 12/25/16 at 07:30 Polyethylene Glycol (miraLAX) 17 gm DAILY PO Last administered on 12/27/16 07: 14; Start 12/25/16 at 09:00 Tamsulosin HCl (Flomax) 0.4 mg HS PO Last administered on 12/27/16 20:39; Start 12/25/16 at 21:00 Artificial Tears (Artificial Tears) 1 drop QID OU Last administered on 21:54; Start 12/25/16 at 09:00 Non-Formulary Medication 59 ml PRN DAILY PRN TP DRY SKIN / SCALING; Start at 23:00; Status UNV Non-Formulary Medication 1 puff BID IH ; Start 12/25/16 at 09:00; Stop 12/25/16 at 09:00; Status DC Insulin Detemir (Levemir) 10 units BID SQ Last administered on 12/27/16 20:28 ; Start 12/25/16 at 09:00 Non-Formulary Medication 118 ml PRN Q6HRS PRN TP PAIN; Start 12/24/16 at 23:00; Stop 12/24/16 at 23:51; Status DC Non-Formulary Medication 2 tab DAILY PO ; Start 12/25/16 at 09:00; Stop at 09:00; Status DC Artificial Tears (Artificial Tears) 1 drop PRN Q8HRS PRN OU DRY EYE; Start 12/24 at 23:45 Escitalopram Oxalate (Lexapro) 10 mg DAILY PO Last administered on 12/27/16 07 :13; Start 12/25/16 at 09:00 Lorazepam (Ativan) 0.5 mg PRN Q8HRS PRN PO ANXIETY / AGITATION Last administered on 12/25/16 09:23; Start 12/24/16 at 23:45 Quetiapine Fumarate (SEROquel) 12.5 mg BID PO Last administered on 12/27/16 20 :39; Start 12/25/16 at 09:00 Albuterol Sulfate (Ventolin) 2.5 mg RTQID NEB Last administered on 12/27/16 20 :30; Start 12/25/16 at 08:00 Budesonide (Pulmicort) 0.5 mg RTBID NEB Last administered on 12/27/16 20:30; Start 12/25/16 at 08:00 Olanzapine (ZyPREXA ZYDIS) 2.5 mg PRN Q2HR PRN PO ANXIETY / AGITATION; Start at 04:15 Haloperidol Lactate (Haldol) 5 mg 1X STAT IM Last administered on 12/25/16t 11 :28; Start 12/25/16 at 11:28; Stop 12/25/16 at 11:29; Status DC Active Scripts Active Reported Vitamin D2 (Ergocalciferol (Vitamin D2)) 50,000 Unit Capsule 50,000 Unit PO QWE Tamsulosin Hcl 0.4 Mg Cap.er.24h 0.4 Mg PO HS Systane Ultra 0.4-0.3% Eye Drp (Propylene Glycol/Peg 400) 10 Ml Drops 1 Drop EACHEYE PRN Q8HRS PRN Seroquel (Quetiapine Fumarate) 25 Mg Tablet 12.5 Mg PO BID Restasis (Cyclosporine) 1 Each Droperette 1 Drop EACHEYE BID Polyethylene Glycol 3350 255 Gm Powder 17 Gm PO DAILY Pantoprazole Sodium 40 Mg Tablet.dr 40 Mg PO DAILY Mucus ER (Guaifenesin) 600 Mg Tab.er.12h 600 Mg PO BID Hydrocodone-Apap 5-325 (Hydrocodone Bit/Acetaminophen) 1 Each Tablet 1 Tab PO PRN Q6HRS PRN Lorazepam 0.5 Mg Tablet 0.5 Mg PO PRN Q8HRS PRN Escitalopram Oxalate 10 Mg Tablet 10 Mg PO DAILY Isosorbide Mononitrate Er (Isosorbide Mononitrate) 30 Mg Tab.er.24h 30 Mg PO DAILY Artificial Tears (Dextran 70/Hypromellose) 1 Each Droperette 1 Each OP QID Advair 100-50 Diskus (Fluticasone/Salmeterol) 1 Each Disk.w.dev 1 Puff IH BID Furosemide 40 Mg Tablet 40 Mg PO QODAY Atorvastatin Calcium 20 Mg Tablet 20 Mg PO QHS Plavix (Clopidogrel Bisulfate) 75 Mg Tablet 1 Tab PO DAILY Oyster Shell 500 Mg + Vit D Tb (Calcium Carbonate/Vitamin D3) 1 Each Tablet 1 Each PO BID Omeprazole 20 Mg Tablet.dr 2 Tab PO DAILY Nystatin 15 Gm Cream..g. 1 Tiny TP BID Magnesium Oxide 400 Mg Tablet 1 Tab PO DAILY Lantus Solostar (Insulin Glargine,Hum.rec.anlog) 100 Unit/1 Ml Insuln.pen 10 Unit SQ BID Duoneb 0.5-3(2.5) Mg/3 Ml (Albuterol/Ipratropium) 3 Ml Ampul.neb 3 Ml NEB PRN Q6HRS PRN Vitamin B-12 (Cyanocobalamin (Vitamin B-12)) 1,000 Mcg Tablet 1 Tab PO DAILY Calcium Acetate 667 Mg Capsule 667 Mg PO TIDWMEALS Biofreeze (Menthol) 118 Ml Gel..ml. 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
--- NOTE | 2016-12-28 01:30 | PN ---
DATE: 12/26/2016 PSYCHIATRIC PROGRESS NOTE This is late entry of 12/26/2016, covers elements not covered in my initial note. SUBJECTIVE: Overall, the patient had a much better day on 12/26/2016. He has been in his wheelchair, more appropriate, quiet. The previous evening, he was grabbing out at nursing staff. REVIEW OF SYSTEMS: Ambulation impaired, in his wheelchair. No CV, , pulmonary, eye system symptoms on review. MENTAL STATUS EXAMINATION: Oriented to himself and situation. Speech is coherent. He said he does not like to talk to psychiatrists and seemed to recognize I was his psychiatrist. Abstraction fair, computation impaired, language function intact, attention span short. Mood and affect still somewhat anxious, labile. LABORATORY DATA: Reviewed. IMPRESSION: Major depressive disorder with psychotic features; anxiety disorder, unspecified; cognitive disorder, unspecified versus major neurocognitive disorder, Alzheimer, vascular with delusion, depression. PLAN: No change from a psychiatric standpoint, continue Lexapro 10 mg a day, Ativan 0.5 mg q.8 hours p.r.n. and Seroquel 12.5 mg b.i.d. We will make further changes as clinically indicated. KATERINE TANG MD DR: GRETCHEN/errol JOB#: [id number] / [id number]
[2016-12-28] MEDS: ALBUTEROL SULFATE 2.5 MG/3 ML NEBU. NEB SCH ×4 (05:43→20:18)
[2016-12-28 06:11] VITALS: BP 170/65
[2016-12-28] MEDS: BUDESONIDE 0.5 MG/2 ML NEBU NEB SCH ×2 (08:00→20:18)
[2016-12-28] MEDS: CALCIUM ACETATE 667 MG CAPSULE PO SCH ×3 (08:00→17:00)
[2016-12-28] MEDS: CYANOCOBALAMIN (VITAMIN B-12) 1,000 MCG TABLET. PO SCH (08:15)
[2016-12-28] MEDS: PANTOPRAZOLE 40 MG TABLET. PO SCH (08:15)
[2016-12-28] MEDS: ISOSORBIDE MONONITRATE ER 30 MG TAB.ER.24H PO SCH (08:16)
[2016-12-28] MEDS: QUEtiapine 25 MG TABLET. PO SCH ×2 (08:16→17:01)
[2016-12-28] MEDS: ESCITALOPRAM 10 MG TABLET. PO SCH (08:16)
[2016-12-28] MEDS: cycloSPORINE 0.05% OPTH 1 DROP DROPERETTE OU SCH ×2 (08:16→20:14)
[2016-12-28] MEDS: FUROSEMIDE 40 MG TABLET PO SCH (08:16)
[2016-12-28] MEDS: CALCIUM CARB/VIT D3 500/200 TABLET PO SCH ×2 (08:16→20:14)
[2016-12-28] MEDS: MAGNESIUM OXIDE 400 MG TABLET PO SCH (08:16)
[2016-12-28] MEDS: POLYETHYLENE GLYCOL 3350 17 GM PACKET. PO SCH (08:17)
[2016-12-28] MEDS: POLYVINYL ALCOHOL 1.4% OPHTH SOLUTION 15ML BOTTLE. OU SCH ×4 (08:17→20:13)
[2016-12-28] MEDS: NYSTATIN 100,000 UNIT/GM TOPICAL CREAM 15GM TUBE. TP SCH ×2 (08:17→20:13)
[2016-12-28] MEDS: INSULIN DETEMIR 300 UNITS/3 ML INSULN.PEN. SQ SCH ×2 (08:22→20:41)
[2016-12-28 16:10] VITALS: BP 119/49
--- NOTE | 2016-12-28 19:53 | PDOC ---
Exam Earl Demential Exam: Earl Note: Please also refer to the separate dictated note~for this date of service dictated separately.~Patient seen individually. Discussed the patient with Nursing staff reviewed the chart.~Reviewed interim history and current functioning. Reviewed vital signs,~Labs/ Radiology~and current medications noted below. Continue current treatment with the changes noted in the dictated addendum note Assessment: Vital Signs: Vital Signs Date Time Temp Pulse Resp B/P (MAP) Pulse Ox O2 Delivery O2 Flow Rate FiO2 12/28/16 16:10 97.6 59 21 119/49 (72) 97 12/28/16 15:21 Room Air 12/28/16 05:43 2.0 I&O Intake and Output 12/28/16 07:00 Intake Total 960 ml Balance 960 ml Intake Oral 960 ml Labs: Laboratory Tests Test 12/28/16 07:39 12/28/16 11:47 12/28/16 16:29 12/28/16 19:37 Glucose (Fingerstick) 99 mg/dL (70-99) 163 mg/dL (70-99) H 164 mg/dL (70-99) H 189 mg/dL (70-99) H Current Medications: Meds: Current Medications Acetaminophen (Tylenol) 650 mg PRN Q6HRS PRN PO PAIN / TEMP; Start 12/24/16 at 22:45 Multi-Ingredient Ointment (Analgesic [place]) 1 tiny PRN QID PRN TP MUSCLE PAIN; Start 12/24/16 at 22:45 Al Hydroxide/Mg Hydroxide (Mylanta Plus Xs) 15 ml PRN AFTMEALHC PRN PO DYSPEPSIA; Start 12/24/16 at 22:45; Status Cancel Magnesium Hydroxide (Milk Of Magnesia) 2,400 mg PRN QHS PRN PO CONSTIPATION; Start 12/24/16 at 22:45; Status Cancel Acetaminophen (Tylenol) 650 mg PRN Q6HRS PRN PO PAIN / TEMP; Start 12/24/16 at 23:00; Status UNV Aspirin (Children'S Aspirin) 81 mg DAILY PO ; Start 12/25/16 at 09:00; Stop 05/03 at 14:18; Status DC Atorvastatin Calcium (Lipitor) 20 mg QHS PO Last administered on 12/27/16t 20: 40; Start 12/25/16 at 21:00 Calcium Acetate (Phoslo) 667 mg TIDWMEALS PO Last administered on 12/28/16 17: 00; Start 12/25/16 at 08:00 Calcium/Vitamin D (Oscal D 500mg/ 200uts) 1 tab BID PO Last administered on 08:16; Start 12/25/16 at 09:00 Clopidogrel Bisulfate (Plavix) 75 mg DAILY PO ; Start 12/25/16 at 09:00; Stop at 14:18; Status DC Cyanocobalamin (Vitamin B-12) 1,000 mcg DAILY PO Last administered on 08:15; Start 12/25/16 at 09:00 Cyclosporine (Restasis) 1 drop BID OU Last administered on 12/28/16 08:16; Start 12/25/16 at 09:00 Ergocalciferol (Vitamin D2) 50,000 unit QWE PO ; Start 12/29/16 at 16:00 Furosemide (Lasix) 40 mg QODAY PO Last administered on 12/28/16 08:16; Start 12/26/16 at 09:00 Guaifenesin (Mucinex Er) 600 mg BID PO Last administered on 12/28/16 08:16; Start 12/25/16 at 09:00 Acetaminophen/ Hydrocodone Bitart (Lortab 5/325) 1 tab PRN Q6HRS PRN PO SEVERE PAIN; Start 12/24/16 at 23:00 Albuterol Sulfate (Ventolin) 2.5 mg PRN Q6HRS PRN NEB SHORTNESS OF BREATH Last administered on 12/27/16 16:39; Start 12/24/16 at 23:45 Isosorbide Mononitrate (Imdur) 30 mg DAILY PO Last administered on 12/28/16 08 :16; Start 12/25/16 at 09:00 Magnesium Oxide (Magnesium Oxide) 400 mg DAILY PO Last administered on 08:16; Start 12/25/16 at 09:00 Nystatin (Mycostatin) 1 tiny BID TP Last administered on 12/28/16 08:17; Start 12/25/16 at 09:00 Pantoprazole Sodium (Protonix) 40 mg DAILYAC PO Last administered on 12/28/16 08:15; Start 12/25/16 at 07:30 Polyethylene Glycol (miraLAX) 17 gm DAILY PO Last administered on 12/28/16 08: 17; Start 12/25/16 at 09:00 Tamsulosin HCl (Flomax) 0.4 mg HS PO Last administered on 12/27/16 20:39; Start 12/25/16 at 21:00 Artificial Tears (Artificial Tears) 1 drop QID OU Last administered on 17:00; Start 12/25/16 at 09:00 Non-Formulary Medication 59 ml PRN DAILY PRN TP DRY SKIN / SCALING; Start at 23:00; Status UNV Non-Formulary Medication 1 puff BID IH ; Start 12/25/16 at 09:00; Stop 12/25/16 at 09:00; Status DC Insulin Detemir (Levemir) 10 units BID SQ Last administered on 12/28/16 08:22 ; Start 12/25/16 at 09:00 Non-Formulary Medication 118 ml PRN Q6HRS PRN TP PAIN; Start 12/24/16 at 23:00; Stop 12/24/16 at 23:51; Status DC Non-Formulary Medication 2 tab DAILY PO ; Start 12/25/16 at 09:00; Stop at 09:00; Status DC Artificial Tears (Artificial Tears) 1 drop PRN Q8HRS PRN OU DRY EYE; Start 12/24 at 23:45 Escitalopram Oxalate (Lexapro) 10 mg DAILY PO Last administered on 12/28/16 08 :16; Start 12/25/16 at 09:00 Lorazepam (Ativan) 0.5 mg PRN Q8HRS PRN PO ANXIETY / AGITATION Last administered on 12/25/16 09:23; Start 12/24/16 at 23:45 Quetiapine Fumarate (SEROquel) 12.5 mg BID PO Last administered on 12/28/16 08 :16; Start 12/25/16 at 09:00; Stop 12/28/16 at 15:03; Status DC Albuterol Sulfate (Ventolin) 2.5 mg RTQID NEB Last administered on 12/28/16 15 :21; Start 12/25/16 at 08:00 Budesonide (Pulmicort) 0.5 mg RTBID NEB Last administered on 12/27/16 20:30; Start 12/25/16 at 08:00 Olanzapine (ZyPREXA ZYDIS) 2.5 mg PRN Q2HR PRN PO ANXIETY / AGITATION; Start at 04:15 Haloperidol Lactate (Haldol) 5 mg 1X STAT IM Last administered on 12/25/16 11 :28; Start 12/25/16 at 11:28; Stop 12/25/16 at 11:29; Status DC Quetiapine Fumarate (SEROquel) 12.5 mg TID@0900,1400,1700 PO Last administered on 12/28/16 17:01; Start 12/28/16 at 17:00 Active Scripts Active Reported Vitamin D2 (Ergocalciferol (Vitamin D2)) 50,000 Unit Capsule 50,000 Unit PO QWE Tamsulosin Hcl 0.4 Mg Cap.er.24h 0.4 Mg PO HS Systane Ultra 0.4-0.3% Eye Drp (Propylene Glycol/Peg 400) 10 Ml Drops 1 Drop EACHEYE PRN Q8HRS PRN Seroquel (Quetiapine Fumarate) 25 Mg Tablet 12.5 Mg PO BID Restasis (Cyclosporine) 1 Each Droperette 1 Drop EACHEYE BID Polyethylene Glycol 3350 255 Gm Powder 17 Gm PO DAILY Pantoprazole Sodium 40 Mg Tablet.dr 40 Mg PO DAILY Mucus ER (Guaifenesin) 600 Mg Tab.er.12h 600 Mg PO BID Hydrocodone-Apap 5-325 (Hydrocodone Bit/Acetaminophen) 1 Each Tablet 1 Tab PO PRN Q6HRS PRN Lorazepam 0.5 Mg Tablet 0.5 Mg PO PRN Q8HRS PRN Escitalopram Oxalate 10 Mg Tablet 10 Mg PO DAILY Isosorbide Mononitrate Er (Isosorbide Mononitrate) 30 Mg Tab.er.24h 30 Mg PO DAILY Artificial Tears (Dextran 70/Hypromellose) 1 Each Droperette 1 Each OP QID Advair 100-50 Diskus (Fluticasone/Salmeterol) 1 Each Disk.w.dev 1 Puff IH BID Furosemide 40 Mg Tablet 40 Mg PO QODAY Atorvastatin Calcium 20 Mg Tablet 20 Mg PO QHS Plavix (Clopidogrel Bisulfate) 75 Mg Tablet 1 Tab PO DAILY Oyster Shell 500 Mg + Vit D Tb (Calcium Carbonate/Vitamin D3) 1 Each Tablet 1 Each PO BID Omeprazole 20 Mg Tablet.dr 2 Tab PO DAILY Nystatin 15 Gm Cream..g. 1 Tiny TP BID Magnesium Oxide 400 Mg Tablet 1 Tab PO DAILY Lantus Solostar (Insulin Glargine,Hum.rec.anlog) 100 Unit/1 Ml Insuln.pen 10 Unit SQ BID Duoneb 0.5-3(2.5) Mg/3 Ml (Albuterol/Ipratropium) 3 Ml Ampul.neb 3 Ml NEB PRN Q6HRS PRN Vitamin B-12 (Cyanocobalamin (Vitamin B-12)) 1,000 Mcg Tablet 1 Tab PO DAILY Calcium Acetate 667 Mg Capsule 667 Mg PO TIDWMEALS Biofreeze (Menthol) 118 Ml Gel..ml. 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
[2016-12-28] MEDS: ATORVASTATIN CALCIUM 20 MG TABLET PO SCH (20:14)
[2016-12-28] MEDS: TAMSULOSIN 0.4 MG CAP.ER.24H. PO SCH (20:14)
--- NOTE | 2016-12-28 23:57 | PN ---
DATE: 12/27/2016 PSYCHIATRIC PROGRESS NOTE This is a late entry of 12/27/2016 covers elements not covered in my initial note. SUBJECTIVE: The patient has been compliant with medications and cares. No PRNs given. REVIEW OF SYSTEMS: Ambulation impaired in his wheelchair. No CV, , pulmonary, eye, ENT system symptoms on review. Reliability poor. MENTAL STATUS EXAM: Oriented to himself and situation. Speech has some latency, coherent. Abstraction fair, computation impaired, language function intact, attention span short. Mood and affect still somewhat labile. He again stated "I don't talk to psychiatrist." LABORATORY DATA: Reviewed. IMPRESSION: Major depressive disorder with psychotic features; impulse control disorder, unspecified; anxiety disorder, unspecified; cognitive disorder, unspecified. PLAN: Increase Seroquel from 12.5 b.i.d. to t.i.d. Maintain the rest as before as noted in my initial note. KATERINE TANG MD DR: GRETCHEN/errol JOB#: [id number] / [id number]
[2016-12-29] MEDS: ALBUTEROL SULFATE 2.5 MG/3 ML NEBU. NEB SCH ×4 (05:26→21:20)
[2016-12-29 05:32] VITALS: BP 161/68
[2016-12-29] MEDS: PANTOPRAZOLE 40 MG TABLET. PO SCH (08:38)
[2016-12-29] MEDS: CYANOCOBALAMIN (VITAMIN B-12) 1,000 MCG TABLET. PO SCH (08:38)
[2016-12-29] MEDS: QUEtiapine 25 MG TABLET. PO SCH ×3 (08:39→15:30)
[2016-12-29] MEDS: ESCITALOPRAM 10 MG TABLET. PO SCH (08:39)
[2016-12-29] MEDS: ISOSORBIDE MONONITRATE ER 30 MG TAB.ER.24H PO SCH (08:39)
[2016-12-29] MEDS: MAGNESIUM OXIDE 400 MG TABLET PO SCH (08:39)
[2016-12-29] MEDS: POLYETHYLENE GLYCOL 3350 17 GM PACKET. PO SCH (08:39)
[2016-12-29] MEDS: CALCIUM CARB/VIT D3 500/200 TABLET PO SCH ×2 (08:39→19:40)
[2016-12-29] MEDS: POLYVINYL ALCOHOL 1.4% OPHTH SOLUTION 15ML BOTTLE. OU SCH ×4 (08:42→19:42)
[2016-12-29] MEDS: cycloSPORINE 0.05% OPTH 1 DROP DROPERETTE OU SCH ×2 (08:42→19:42)
[2016-12-29] MEDS: CALCIUM ACETATE 667 MG CAPSULE PO SCH ×3 (08:42→15:27)
[2016-12-29] MEDS: NYSTATIN 100,000 UNIT/GM TOPICAL CREAM 15GM TUBE. TP SCH ×2 (08:44→19:43)
[2016-12-29] MEDS: INSULIN DETEMIR 300 UNITS/3 ML INSULN.PEN. SQ SCH ×2 (08:44→19:44)
[2016-12-29] MEDS: BUDESONIDE 0.5 MG/2 ML NEBU NEB SCH ×2 (10:44→21:20)
[2016-12-29] MEDS ORDERED: ERGOCALCIFEROL (VITAMIN D2) 50,000 UNIT CAPSULE PO SCH (16:00)
[2016-12-29 16:13] VITALS: BP 124/56
[2016-12-29] MEDS: TAMSULOSIN 0.4 MG CAP.ER.24H. PO SCH (19:40)
[2016-12-29] MEDS: ATORVASTATIN CALCIUM 20 MG TABLET PO SCH (19:40)
--- NOTE | 2016-12-29 20:28 | PDOC ---
Exam Earl Demential Exam: Earl Note: Please also refer to the separate dictated note~for this date of service dictated separately.~Patient seen individually. Discussed the patient with Nursing staff reviewed the chart.~Reviewed interim history and current functioning. Reviewed vital signs,~Labs/ Radiology~and current medications noted below. Continue current treatment with the changes noted in the dictated addendum note Assessment: Vital Signs: Vital Signs Date Time Temp Pulse Resp B/P (MAP) Pulse Ox O2 Delivery O2 Flow Rate FiO2 12/29/16 16:28 93 Room Air 12/29/16 16:13 98.0 58 20 124/56 (78) 12/28/16 05:43 2.0 I&O Intake and Output 12/29/16 07:00 Intake Total 720 ml Balance 720 ml Intake Oral 720 ml Labs: Laboratory Tests Test 12/29/16 07:36 12/29/16 11:43 12/29/16 17:13 12/29/16 19:13 Glucose (Fingerstick) 119 mg/dL (70-99) H 154 mg/dL (70-99) H 147 mg/dL (70-99) H 170 mg/dL (70-99) H Current Medications: Meds: Current Medications Acetaminophen (Tylenol) 650 mg PRN Q6HRS PRN PO PAIN / TEMP; Start 12/24/16 at 22:45 Multi-Ingredient Ointment (Analgesic [place]) 1 tiny PRN QID PRN TP MUSCLE PAIN; Start 12/24/16 at 22:45 Al Hydroxide/Mg Hydroxide (Mylanta Plus Xs) 15 ml PRN AFTMEALHC PRN PO DYSPEPSIA; Start 12/24/16 at 22:45; Status Cancel Magnesium Hydroxide (Milk Of Magnesia) 2,400 mg PRN QHS PRN PO CONSTIPATION; Start 12/24/16 at 22:45; Status Cancel Acetaminophen (Tylenol) 650 mg PRN Q6HRS PRN PO PAIN / TEMP; Start 12/24/16 at 23:00; Status UNV Aspirin (Children'S Aspirin) 81 mg DAILY PO ; Start 12/25/16 at 09:00; Stop 05/03 at 14:18; Status DC Atorvastatin Calcium (Lipitor) 20 mg QHS PO Last administered on 12/29/16t 19: 40; Start 12/25/16 at 21:00 Calcium Acetate (Phoslo) 667 mg TIDWMEALS PO Last administered on 12/29/16 15: 27; Start 12/25/16 at 08:00 Calcium/Vitamin D (Oscal D 500mg/ 200uts) 1 tab BID PO Last administered on 19:40; Start 12/25/16 at 09:00 Clopidogrel Bisulfate (Plavix) 75 mg DAILY PO ; Start 12/25/16 at 09:00; Stop at 14:18; Status DC Cyanocobalamin (Vitamin B-12) 1,000 mcg DAILY PO Last administered on 08:38; Start 12/25/16 at 09:00 Cyclosporine (Restasis) 1 drop BID OU Last administered on 12/29/16 19:42; Start 12/25/16 at 09:00 Ergocalciferol (Vitamin D2) 50,000 unit QWE PO Last administered on 12/29/16 15:27; Start 12/29/16 at 16:00 Furosemide (Lasix) 40 mg QODAY PO Last administered on 12/28/16 08:16; Start 12/26/16 at 09:00 Guaifenesin (Mucinex Er) 600 mg BID PO Last administered on 12/29/16 19:40; Start 12/25/16 at 09:00 Acetaminophen/ Hydrocodone Bitart (Lortab 5/325) 1 tab PRN Q6HRS PRN PO SEVERE PAIN; Start 12/24/16 at 23:00 Albuterol Sulfate (Ventolin) 2.5 mg PRN Q6HRS PRN NEB SHORTNESS OF BREATH Last administered on 12/27/16 16:39; Start 12/24/16 at 23:45 Isosorbide Mononitrate (Imdur) 30 mg DAILY PO Last administered on 12/29/16 08 :39; Start 12/25/16 at 09:00 Magnesium Oxide (Magnesium Oxide) 400 mg DAILY PO Last administered on 08:39; Start 12/25/16 at 09:00 Nystatin (Mycostatin) 1 tiny BID TP Last administered on 12/29/16 19:43; Start 12/25/16 at 09:00 Pantoprazole Sodium (Protonix) 40 mg DAILYAC PO Last administered on 12/29/16 08:38; Start 12/25/16 at 07:30 Polyethylene Glycol (miraLAX) 17 gm DAILY PO Last administered on 12/29/16 08: 39; Start 12/25/16 at 09:00 Tamsulosin HCl (Flomax) 0.4 mg HS PO Last administered on 12/29/16 19:40; Start 12/25/16 at 21:00 Artificial Tears (Artificial Tears) 1 drop QID OU Last administered on 19:42; Start 12/25/16 at 09:00 Non-Formulary Medication 59 ml PRN DAILY PRN TP DRY SKIN / SCALING; Start at 23:00; Status UNV Non-Formulary Medication 1 puff BID IH ; Start 12/25/16 at 09:00; Stop 12/25/16 at 09:00; Status DC Insulin Detemir (Levemir) 10 units BID SQ Last administered on 12/29/16 19:44 ; Start 12/25/16 at 09:00 Non-Formulary Medication 118 ml PRN Q6HRS PRN TP PAIN; Start 12/24/16 at 23:00; Stop 12/24/16 at 23:51; Status DC Non-Formulary Medication 2 tab DAILY PO ; Start 12/25/16 at 09:00; Stop at 09:00; Status DC Artificial Tears (Artificial Tears) 1 drop PRN Q8HRS PRN OU DRY EYE; Start 12/24 at 23:45 Escitalopram Oxalate (Lexapro) 10 mg DAILY PO Last administered on 12/29/16 08 :39; Start 12/25/16 at 09:00 Lorazepam (Ativan) 0.5 mg PRN Q8HRS PRN PO ANXIETY / AGITATION Last administered on 12/25/16 09:23; Start 12/24/16 at 23:45 Quetiapine Fumarate (SEROquel) 12.5 mg BID PO Last administered on 12/28/16 08 :16; Start 12/25/16 at 09:00; Stop 12/28/16 at 15:03; Status DC Albuterol Sulfate (Ventolin) 2.5 mg RTQID NEB Last administered on 12/29/16 16 :28; Start 12/25/16 at 08:00 Budesonide (Pulmicort) 0.5 mg RTBID NEB Last administered on 12/29/16 10:44; Start 12/25/16 at 08:00 Olanzapine (ZyPREXA ZYDIS) 2.5 mg PRN Q2HR PRN PO ANXIETY / AGITATION; Start at 04:15 Haloperidol Lactate (Haldol) 5 mg 1X STAT IM Last administered on 12/25/16 11 :28; Start 12/25/16 at 11:28; Stop 12/25/16 at 11:29; Status DC Quetiapine Fumarate (SEROquel) 12.5 mg TID@0900,1400,1700 PO Last administered on 12/29/16 15:30; Start 12/28/16 at 17:00 Active Scripts Active Reported Vitamin D2 (Ergocalciferol (Vitamin D2)) 50,000 Unit Capsule 50,000 Unit PO QWE Tamsulosin Hcl 0.4 Mg Cap.er.24h 0.4 Mg PO HS Systane Ultra 0.4-0.3% Eye Drp (Propylene Glycol/Peg 400) 10 Ml Drops 1 Drop EACHEYE PRN Q8HRS PRN Seroquel (Quetiapine Fumarate) 25 Mg Tablet 12.5 Mg PO BID Restasis (Cyclosporine) 1 Each Droperette 1 Drop EACHEYE BID Polyethylene Glycol 3350 255 Gm Powder 17 Gm PO DAILY Pantoprazole Sodium 40 Mg Tablet.dr 40 Mg PO DAILY Mucus ER (Guaifenesin) 600 Mg Tab.er.12h 600 Mg PO BID Hydrocodone-Apap 5-325 (Hydrocodone Bit/Acetaminophen) 1 Each Tablet 1 Tab PO PRN Q6HRS PRN Lorazepam 0.5 Mg Tablet 0.5 Mg PO PRN Q8HRS PRN Escitalopram Oxalate 10 Mg Tablet 10 Mg PO DAILY Isosorbide Mononitrate Er (Isosorbide Mononitrate) 30 Mg Tab.er.24h 30 Mg PO DAILY Artificial Tears (Dextran 70/Hypromellose) 1 Each Droperette 1 Each OP QID Advair 100-50 Diskus (Fluticasone/Salmeterol) 1 Each Disk.w.dev 1 Puff IH BID Furosemide 40 Mg Tablet 40 Mg PO QODAY Atorvastatin Calcium 20 Mg Tablet 20 Mg PO QHS Plavix (Clopidogrel Bisulfate) 75 Mg Tablet 1 Tab PO DAILY Oyster Shell 500 Mg + Vit D Tb (Calcium Carbonate/Vitamin D3) 1 Each Tablet 1 Each PO BID Omeprazole 20 Mg Tablet.dr 2 Tab PO DAILY Nystatin 15 Gm Cream..g. 1 Tiny TP BID Magnesium Oxide 400 Mg Tablet 1 Tab PO DAILY Lantus Solostar (Insulin Glargine,Hum.rec.anlog) 100 Unit/1 Ml Insuln.pen 10 Unit SQ BID Duoneb 0.5-3(2.5) Mg/3 Ml (Albuterol/Ipratropium) 3 Ml Ampul.neb 3 Ml NEB PRN Q6HRS PRN Vitamin B-12 (Cyanocobalamin (Vitamin B-12)) 1,000 Mcg Tablet 1 Tab PO DAILY Calcium Acetate 667 Mg Capsule 667 Mg PO TIDWMEALS Biofreeze (Menthol) 118 Ml Gel..ml. 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
--- NOTE | 2016-12-29 20:37 | PN ---
DATE: 12/28/2016 This is a late entry of 12/28/2016, covers elements not covered in my initial note. SUBJECTIVE: The patient woke up at 3:00 a.m. Morning was demanding. Scrotum was red. Better after symptomatic treatment. He has not been aggressive. REVIEW OF SYSTEMS: Ambulation impaired. No CV, , pulmonary, eye system symptoms on review, oriented to himself and situation. MENTAL STATUS EXAM: Speech is coherent, still dismissive, not wanting to talk to the psychiatrist. Abstraction fair, computation impaired, short term memory is impaired, remote is better. Language function intact. Mood and affect anxious, labile, but improved. LABORATORY DATA: Reviewed. IMPRESSION: Major depressive disorder with psychotic features; major neurocognitive disorder; early Alzheimer, vascular with delusion; depression. Rest unchanged. PLAN: Continue Lexapro 10 mg a day, Ativan p.r.n., Seroquel was increased to 12.5 t.i.d. Continue Zyprexa p.r.n. Adjust further as clinically indicated. KATERINE TANG MD DR: GRETCHEN/errol JOB#: [id number] / [id number]
--- NOTE | 2016-12-30 01:29 | PN ---
DATE: 12/29/2016 PSYCHIATRIC PROGRESS NOTE This note covers elements not covered in my initial note. SUBJECTIVE: Overall, the patient has not been agitated, aggressive, compliant with his medications. REVIEW OF SYSTEMS: Ambulation impaired in his wheelchair, was able to accept talking to a psychiatrist today, which in itself is an improvement. No CV, , pulmonary, eye system symptoms on review. MENTAL STATUS EXAM: Oriented to himself and situation. Mood and affect is improved. No psychotic symptoms, suicidal or homicidal ideation. LABORATORY DATA: Reviewed. IMPRESSION: Unchanged from initial note. PLAN: No change from a psychiatric standpoint mentioned in my initial note. MAN Veronica TANG MD DR: GRETCHEN/errol JOB#: [id number] / [id number]
[2016-12-30] MEDS: ALBUTEROL SULFATE 2.5 MG/3 ML NEBU. NEB SCH ×4 (05:10→20:35)
[2016-12-30 06:01] VITALS: BP 128/74
[2016-12-30] MEDS: ESCITALOPRAM 10 MG TABLET. PO SCH (08:03)
[2016-12-30] MEDS: CYANOCOBALAMIN (VITAMIN B-12) 1,000 MCG TABLET. PO SCH (08:03)
[2016-12-30] MEDS: MAGNESIUM OXIDE 400 MG TABLET PO SCH (08:03)
[2016-12-30] MEDS: POLYETHYLENE GLYCOL 3350 17 GM PACKET. PO SCH (08:03)
[2016-12-30] MEDS: PANTOPRAZOLE 40 MG TABLET. PO SCH (08:04)
[2016-12-30] MEDS: QUEtiapine 25 MG TABLET. PO SCH ×3 (08:04→16:25)
[2016-12-30] MEDS: CALCIUM ACETATE 667 MG CAPSULE PO SCH ×3 (08:04→16:25)
[2016-12-30] MEDS: FUROSEMIDE 40 MG TABLET PO SCH (08:04)
[2016-12-30] MEDS: ISOSORBIDE MONONITRATE ER 30 MG TAB.ER.24H PO SCH (08:04)
[2016-12-30] MEDS: cycloSPORINE 0.05% OPTH 1 DROP DROPERETTE OU SCH ×2 (08:05→20:45)
[2016-12-30] MEDS: CALCIUM CARB/VIT D3 500/200 TABLET PO SCH ×2 (08:05→20:40)
[2016-12-30] MEDS: POLYVINYL ALCOHOL 1.4% OPHTH SOLUTION 15ML BOTTLE. OU SCH ×4 (08:05→20:47)
[2016-12-30] MEDS: INSULIN DETEMIR 300 UNITS/3 ML INSULN.PEN. SQ SCH ×2 (08:06→20:43)
[2016-12-30] MEDS: NYSTATIN 100,000 UNIT/GM TOPICAL CREAM 15GM TUBE. TP SCH ×2 (08:06→20:47)
[2016-12-30] MEDS: BUDESONIDE 0.5 MG/2 ML NEBU NEB SCH ×2 (11:09→20:35)
[2016-12-30 13:37] LABS: BASO # 0.1 x10^3/uL (0.0-0.2); BASO % 1 % (0-3); EOS # 0.5 x10^3/uL (0.0-0.7); EOS % 8 % (0-3); HEMATOCRIT 34.2 % (39.0-53.0); LYMPH # 0.8 x10^3/uL (1.0-4.8); LYMPH % 12 % (24-48); MEAN CORPUSCULAR HEMOGLOBIN 29 pg (25-35); MEAN CORPUSCULAR HGB CONC 32 g/dL (31-37); MEAN CORPUSCULAR VOLUME 89 fL (79-100); MONO # 0.5 x10^3/uL (0.0-1.1); MONO % 9 % (0-9); NEUT # 4.3 x10^3uL (1.8-7.7); NEUT % 70 % (31-73); PLATELET COUNT 223 x10^3/uL (140-400); RED BLOOD COUNT 3.86 x10^6/uL (4.30-5.70); WHITE BLOOD COUNT 6.2 x10^3/uL (4.0-11.0)
[2016-12-30 13:53] LABS: ALBUMIN 2.3 g/dL (3.4-5.0); ALBUMIN/GLOBULIN RATIO 0.5 (1.0-1.7); CALCIUM 8.4 mg/dL (8.5-10.1); CREATININE 1.9 mg/dL (0.7-1.3); GFR 34.4; TOTAL BILIRUBIN 0.3 mg/dL (0.2-1.0); TOTAL PROTEIN 6.7 g/dL (6.4-8.2)
[2016-12-30 16:05] VITALS: BP 126/50
--- NOTE | 2016-12-30 20:10 | PDOC ---
Exam Earl Demential Exam: Earl Note: Please also refer to the separate dictated note~for this date of service dictated separately.~Patient seen individually. Discussed the patient with Nursing staff reviewed the chart.~Reviewed interim history and current functioning. Reviewed vital signs,~Labs/ Radiology~and current medications noted below. Continue current treatment with the changes noted in the dictated addendum note Assessment: Vital Signs: Vital Signs Date Time Temp Pulse Resp B/P (MAP) Pulse Ox O2 Delivery O2 Flow Rate FiO2 12/30/16 16:22 93 Room Air 12/30/16 16:05 97.3 75 18 126/50 (75) 12/28/16 05:43 2.0 I&O Intake and Output 12/30/16 07:00 Intake Total 1320 ml Balance 1320 ml Intake Oral 1320 ml Labs: Laboratory Tests Test 12/30/16 07:11 12/30/16 11:47 12/30/16 13:09 12/30/16 16:58 Glucose (Fingerstick) 85 mg/dL (70-99) 170 mg/dL (70-99) H 127 mg/dL (70-99) H White Blood Count 6.2 x10^3/uL (4.0-11.0) Red Blood Count 3.86 x10^6/uL (4.30-5.70) L Hemoglobin 11.0 g/dL (13.0-17.5) L Hematocrit 34.2 % (39.0-53.0) L Mean Corpuscular Volume 89 fL (79-100) Mean Corpuscular Hemoglobin 29 pg (25-35) Mean Corpuscular Hemoglobin Concent 32 g/dL (31-37) Red Cell Distribution Width 16.0 % (11.5-14.5) H Platelet Count 223 x10^3/uL (140-400) Neutrophils (%) (Auto) 70 % (31-73) Lymphocytes (%) (Auto) 12 % (24-48) L Monocytes (%) (Auto) 9 % (0-9) Eosinophils (%) (Auto) 8 % (0-3) H Basophils (%) (Auto) 1 % (0-3) Neutrophils # (Auto) 4.3 x10^3uL (1.8-7.7) Lymphocytes # (Auto) 0.8 x10^3/uL (1.0-4.8) L Monocytes # (Auto) 0.5 x10^3/uL (0.0-1.1) Eosinophils # (Auto) 0.5 x10^3/uL (0.0-0.7) Basophils # (Auto) 0.1 x10^3/uL (0.0-0.2) Sodium Level 140 mmol/L (136-145) Potassium Level 4.0 mmol/L (3.5-5.1) Chloride Level 105 mmol/L (98-107) Carbon Dioxide Level 31 mmol/L (21-32) Anion Gap 4 (6-14) L Blood Urea Nitrogen 37 mg/dL (8-26) H Creatinine 1.9 mg/dL (0.7-1.3) H Estimated GFR (Cockcroft-Gault) 34.4 BUN/Creatinine Ratio 19 (6-20) Glucose Level 179 mg/dL (70-99) H Calcium Level 8.4 mg/dL (8.5-10.1) L Total Bilirubin 0.3 mg/dL (0.2-1.0) Aspartate Amino Transferase (AST) 15 U/L (15-37) Alanine Aminotransferase (ALT) 13 U/L (16-63) L Alkaline Phosphatase 90 U/L (46-116) Total Protein 6.7 g/dL (6.4-8.2) Albumin 2.3 g/dL (3.4-5.0) L Albumin/Globulin Ratio 0.5 (1.0-1.7) L Test 12/30/16 19:13 Glucose (Fingerstick) 155 mg/dL (70-99) H Current Medications: Meds: Current Medications Acetaminophen (Tylenol) 650 mg PRN Q6HRS PRN PO PAIN / TEMP; Start 12/24/16 at 22:45 Multi-Ingredient Ointment (Analgesic [place]) 1 tiny PRN QID PRN TP MUSCLE PAIN; Start 12/24/16 at 22:45 Al Hydroxide/Mg Hydroxide (Mylanta Plus Xs) 15 ml PRN AFTMEALHC PRN PO DYSPEPSIA; Start 12/24/16 at 22:45; Status Cancel Magnesium Hydroxide (Milk Of Magnesia) 2,400 mg PRN QHS PRN PO CONSTIPATION; Start 12/24/16 at 22:45; Status Cancel Acetaminophen (Tylenol) 650 mg PRN Q6HRS PRN PO PAIN / TEMP; Start 12/24/16 at 23:00; Status UNV Aspirin (Children'S Aspirin) 81 mg DAILY PO ; Start 12/25/16 at 09:00; Stop 05/03 at 14:18; Status DC Atorvastatin Calcium (Lipitor) 20 mg QHS PO Last administered on 12/29/16 19: 40; Start 12/25/16 at 21:00 Calcium Acetate (Phoslo) 667 mg TIDWMEALS PO Last administered on 12/30/16 16: 25; Start 12/25/16 at 08:00 Calcium/Vitamin D (Oscal D 500mg/ 200uts) 1 tab BID PO Last administered on 08:05; Start 12/25/16 at 09:00 Clopidogrel Bisulfate (Plavix) 75 mg DAILY PO ; Start 12/25/16 at 09:00; Stop at 14:18; Status DC Cyanocobalamin (Vitamin B-12) 1,000 mcg DAILY PO Last administered on 08:03; Start 12/25/16 at 09:00 Cyclosporine (Restasis) 1 drop BID OU Last administered on 12/30/16 08:05; Start 12/25/16 at 09:00 Ergocalciferol (Vitamin D2) 50,000 unit QWE PO Last administered on 12/29/16 15:27; Start 12/29/16 at 16:00 Furosemide (Lasix) 40 mg QODAY PO Last administered on 12/30/16 08:04; Start 12/26/16 at 09:00 Guaifenesin (Mucinex Er) 600 mg BID PO Last administered on 12/30/16 08:04; Start 12/25/16 at 09:00 Acetaminophen/ Hydrocodone Bitart (Lortab 5/325) 1 tab PRN Q6HRS PRN PO SEVERE PAIN; Start 12/24/16 at 23:00 Albuterol Sulfate (Ventolin) 2.5 mg PRN Q6HRS PRN NEB SHORTNESS OF BREATH Last administered on 12/27/16 16:39; Start 12/24/16 at 23:45 Isosorbide Mononitrate (Imdur) 30 mg DAILY PO Last administered on 12/30/16 08 :04; Start 12/25/16 at 09:00 Magnesium Oxide (Magnesium Oxide) 400 mg DAILY PO Last administered on 08:03; Start 12/25/16 at 09:00 Nystatin (Mycostatin) 1 tiny BID TP Last administered on 12/30/16 08:06; Start 12/25/16 at 09:00 Pantoprazole Sodium (Protonix) 40 mg DAILYAC PO Last administered on 12/30/16 08:04; Start 12/25/16 at 07:30 Polyethylene Glycol (miraLAX) 17 gm DAILY PO Last administered on 12/30/16 08: 03; Start 12/25/16 at 09:00 Tamsulosin HCl (Flomax) 0.4 mg HS PO Last administered on 12/29/16 19:40; Start 12/25/16 at 21:00 Artificial Tears (Artificial Tears) 1 drop QID OU Last administered on 16:25; Start 12/25/16 at 09:00 Non-Formulary Medication 59 ml PRN DAILY PRN TP DRY SKIN / SCALING; Start at 23:00; Status UNV Non-Formulary Medication 1 puff BID IH ; Start 12/25/16 at 09:00; Stop 12/25/16 at 09:00; Status DC Insulin Detemir (Levemir) 10 units BID SQ Last administered on 12/30/16 08:06 ; Start 12/25/16 at 09:00 Non-Formulary Medication 118 ml PRN Q6HRS PRN TP PAIN; Start 12/24/16 at 23:00; Stop 12/24/16 at 23:51; Status DC Non-Formulary Medication 2 tab DAILY PO ; Start 12/25/16 at 09:00; Stop at 09:00; Status DC Artificial Tears (Artificial Tears) 1 drop PRN Q8HRS PRN OU DRY EYE; Start 12/24 at 23:45 Escitalopram Oxalate (Lexapro) 10 mg DAILY PO Last administered on 12/30/16 08 :03; Start 12/25/16 at 09:00 Lorazepam (Ativan) 0.5 mg PRN Q8HRS PRN PO ANXIETY / AGITATION Last administered on 12/25/16 09:23; Start 12/24/16 at 23:45 Quetiapine Fumarate (SEROquel) 12.5 mg BID PO Last administered on 12/28/16 08 :16; Start 12/25/16 at 09:00; Stop 12/28/16 at 15:03; Status DC Albuterol Sulfate (Ventolin) 2.5 mg RTQID NEB Last administered on 12/30/16 16 :22; Start 12/25/16 at 08:00 Budesonide (Pulmicort) 0.5 mg RTBID NEB Last administered on 12/30/16 11:09; Start 12/25/16 at 08:00 Olanzapine (ZyPREXA ZYDIS) 2.5 mg PRN Q2HR PRN PO ANXIETY / AGITATION; Start at 04:15 Haloperidol Lactate (Haldol) 5 mg 1X STAT IM Last administered on 12/25/16 11 :28; Start 12/25/16 at 11:28; Stop 12/25/16 at 11:29; Status DC Quetiapine Fumarate (SEROquel) 12.5 mg TID@0900,1400,1700 PO Last administered on 12/30/16 16:25; Start 12/28/16 at 17:00 Active Scripts Active Reported Vitamin D2 (Ergocalciferol (Vitamin D2)) 50,000 Unit Capsule 50,000 Unit PO QWE Tamsulosin Hcl 0.4 Mg Cap.er.24h 0.4 Mg PO HS Systane Ultra 0.4-0.3% Eye Drp (Propylene Glycol/Peg 400) 10 Ml Drops 1 Drop EACHEYE PRN Q8HRS PRN Seroquel (Quetiapine Fumarate) 25 Mg Tablet 12.5 Mg PO BID Restasis (Cyclosporine) 1 Each Droperette 1 Drop EACHEYE BID Polyethylene Glycol 3350 255 Gm Powder 17 Gm PO DAILY Pantoprazole Sodium 40 Mg Tablet.dr 40 Mg PO DAILY Mucus ER (Guaifenesin) 600 Mg Tab.er.12h 600 Mg PO BID Hydrocodone-Apap 5-325 (Hydrocodone Bit/Acetaminophen) 1 Each Tablet 1 Tab PO PRN Q6HRS PRN Lorazepam 0.5 Mg Tablet 0.5 Mg PO PRN Q8HRS PRN Escitalopram Oxalate 10 Mg Tablet 10 Mg PO DAILY Isosorbide Mononitrate Er (Isosorbide Mononitrate) 30 Mg Tab.er.24h 30 Mg PO DAILY Artificial Tears (Dextran 70/Hypromellose) 1 Each Droperette 1 Each OP QID Advair 100-50 Diskus (Fluticasone/Salmeterol) 1 Each Disk.w.dev 1 Puff IH BID Furosemide 40 Mg Tablet 40 Mg PO QODAY Atorvastatin Calcium 20 Mg Tablet 20 Mg PO QHS Plavix (Clopidogrel Bisulfate) 75 Mg Tablet 1 Tab PO DAILY Oyster Shell 500 Mg + Vit D Tb (Calcium Carbonate/Vitamin D3) 1 Each Tablet 1 Each PO BID Omeprazole 20 Mg Tablet.dr 2 Tab PO DAILY Nystatin 15 Gm Cream..g. 1 Tiny TP BID Magnesium Oxide 400 Mg Tablet 1 Tab PO DAILY Lantus Solostar (Insulin Glargine,Hum.rec.anlog) 100 Unit/1 Ml Insuln.pen 10 Unit SQ BID Duoneb 0.5-3(2.5) Mg/3 Ml (Albuterol/Ipratropium) 3 Ml Ampul.neb 3 Ml NEB PRN Q6HRS PRN Vitamin B-12 (Cyanocobalamin (Vitamin B-12)) 1,000 Mcg Tablet 1 Tab PO DAILY Calcium Acetate 667 Mg Capsule 667 Mg PO TIDWMEALS Biofreeze (Menthol) 118 Ml Gel..ml. 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
[2016-12-30] MEDS: TAMSULOSIN 0.4 MG CAP.ER.24H. PO SCH (20:40)
[2016-12-30] MEDS: ATORVASTATIN CALCIUM 20 MG TABLET PO SCH (20:46)
[2016-12-31] MEDS: ALBUTEROL SULFATE 2.5 MG/3 ML NEBU. NEB SCH ×4 (05:40→20:00)
[2016-12-31 06:25] VITALS: BP 150/81
[2016-12-31] MEDS: ESCITALOPRAM 10 MG TABLET. PO SCH (07:50)
[2016-12-31] MEDS: PANTOPRAZOLE 40 MG TABLET. PO SCH (07:50)
[2016-12-31] MEDS: POLYETHYLENE GLYCOL 3350 17 GM PACKET. PO SCH (07:50)
[2016-12-31] MEDS: CALCIUM CARB/VIT D3 500/200 TABLET PO SCH ×2 (07:50→19:41)
[2016-12-31] MEDS: MAGNESIUM OXIDE 400 MG TABLET PO SCH (07:51)
[2016-12-31] MEDS: ISOSORBIDE MONONITRATE ER 30 MG TAB.ER.24H PO SCH (07:51)
[2016-12-31] MEDS: CYANOCOBALAMIN (VITAMIN B-12) 1,000 MCG TABLET. PO SCH (07:51)
[2016-12-31] MEDS: QUEtiapine 25 MG TABLET. PO SCH ×3 (07:51→16:15)
[2016-12-31] MEDS: cycloSPORINE 0.05% OPTH 1 DROP DROPERETTE OU SCH ×2 (07:51→19:40)
[2016-12-31] MEDS: POLYVINYL ALCOHOL 1.4% OPHTH SOLUTION 15ML BOTTLE. OU SCH ×4 (07:53→19:42)
[2016-12-31] MEDS: NYSTATIN 100,000 UNIT/GM TOPICAL CREAM 15GM TUBE. TP SCH ×2 (07:53→19:42)
[2016-12-31] MEDS: CALCIUM ACETATE 667 MG CAPSULE PO SCH ×3 (07:55→16:15)
[2016-12-31] MEDS: INSULIN DETEMIR 300 UNITS/3 ML INSULN.PEN. SQ SCH ×2 (07:58→19:43)
--- NOTE | 2016-12-31 08:04 | PN ---
DATE: 12/30/2016 PSYCHIATRIC PROGRESS NOTE This is a late entry of 12/30/2016, covers elements not covered in my initial note. SUBJECTIVE: The patient was staffed at a treatment team meeting with the entire team the morning of 12/30/2016, seen individually the evening of 12/30/2016. Sleeping about 5-3/4 hours, 90% of meals. We will check labs the morning of 12/31/2016. He has not been putting himself on the floor as much recently, has appeared calmer. REVIEW OF SYSTEMS: Ambulation impaired, in his wheelchair. No CV, , pulmonary, eye system symptoms on review. MENTAL STATUS EXAM: Oriented to himself and situation. Speech has some latency. Abstraction fair, computation impaired, language function intact. Mood and affect overall improved. LABORATORY DATA: Reviewed. IMPRESSION: Major depressive disorder, recurrent, in partial remission; cognitive disorder, unspecified. PLAN: Maintain current psychotropics, Lexapro, Ativan, Seroquel along with Zyprexa p.r.n. Possible transition to shelter in the next day or 2. KATERINE TANG MD DR: GRETCHEN/erorl JOB#: [id number] / [id number]
[2016-12-31] MEDS: BUDESONIDE 0.5 MG/2 ML NEBU NEB SCH ×2 (09:20→20:00)
[2016-12-31] MEDS ORDERED: OLAN5TAB5 PO (15:22)
[2016-12-31 16:33] VITALS: BP 141/60
[2016-12-31] MEDS: ATORVASTATIN CALCIUM 20 MG TABLET PO SCH (19:40)
[2016-12-31] MEDS: TAMSULOSIN 0.4 MG CAP.ER.24H. PO SCH (19:40)
--- NOTE | 2016-12-31 21:00 | PDOC ---
Exam Earl Demential Exam: Earl Note: Please also refer to the separate dictated note~for this date of service dictated separately.~Patient seen individually. Discussed the patient with Nursing staff reviewed the chart.~Reviewed interim history and current functioning. Reviewed vital signs,~Labs/ Radiology~and current medications noted below. Continue current treatment with the changes noted in the dictated addendum note Assessment: Vital Signs: Vital Signs Date Time Temp Pulse Resp B/P (MAP) Pulse Ox O2 Delivery O2 Flow Rate FiO2 12/31/16 16:33 98.6 62 20 141/60 (87) 92 12/31/16 15:26 Room Air 12/28/16 05:43 2.0 I&O Intake and Output 12/31/16 07:00 Intake Total 1080 ml Balance 1080 ml Intake Oral 1080 ml # Bowel Movements 1 Labs: Laboratory Tests Test 12/31/16 07:42 12/31/16 11:59 12/31/16 16:54 12/31/16 19:19 Glucose (Fingerstick) 89 mg/dL (70-99) 125 mg/dL (70-99) H 144 mg/dL (70-99) H 112 mg/dL (70-99) H Current Medications: Meds: Current Medications Acetaminophen (Tylenol) 650 mg PRN Q6HRS PRN PO PAIN / TEMP; Start 12/24/16 at 22:45 Multi-Ingredient Ointment (Analgesic [place]) 1 tiny PRN QID PRN TP MUSCLE PAIN; Start 12/24/16 at 22:45 Al Hydroxide/Mg Hydroxide (Mylanta Plus Xs) 15 ml PRN AFTMEALHC PRN PO DYSPEPSIA; Start 12/24/16 at 22:45; Status Cancel Magnesium Hydroxide (Milk Of Magnesia) 2,400 mg PRN QHS PRN PO CONSTIPATION; Start 12/24/16 at 22:45; Status Cancel Acetaminophen (Tylenol) 650 mg PRN Q6HRS PRN PO PAIN / TEMP; Start 12/24/16 at 23:00; Status UNV Aspirin (Children'S Aspirin) 81 mg DAILY PO ; Start 12/25/16 at 09:00; Stop 05/03 at 14:18; Status DC Atorvastatin Calcium (Lipitor) 20 mg QHS PO Last administered on 12/31/16t 19: 40; Start 12/25/16 at 21:00 Calcium Acetate (Phoslo) 667 mg TIDWMEALS PO Last administered on 12/31/16 16: 15; Start 12/25/16 at 08:00 Calcium/Vitamin D (Oscal D 500mg/ 200uts) 1 tab BID PO Last administered on 19:41; Start 12/25/16 at 09:00 Clopidogrel Bisulfate (Plavix) 75 mg DAILY PO ; Start 12/25/16 at 09:00; Stop at 14:18; Status DC Cyanocobalamin (Vitamin B-12) 1,000 mcg DAILY PO Last administered on 07:51; Start 12/25/16 at 09:00 Cyclosporine (Restasis) 1 drop BID OU Last administered on 12/31/16 19:40; Start 12/25/16 at 09:00 Ergocalciferol (Vitamin D2) 50,000 unit QWE PO Last administered on 12/29/16 15:27; Start 12/29/16 at 16:00 Furosemide (Lasix) 40 mg QODAY PO Last administered on 12/30/16 08:04; Start 12/26/16 at 09:00 Guaifenesin (Mucinex Er) 600 mg BID PO Last administered on 12/31/16 19:40; Start 12/25/16 at 09:00 Acetaminophen/ Hydrocodone Bitart (Lortab 5/325) 1 tab PRN Q6HRS PRN PO SEVERE PAIN; Start 12/24/16 at 23:00 Albuterol Sulfate (Ventolin) 2.5 mg PRN Q6HRS PRN NEB SHORTNESS OF BREATH Last administered on 12/27/16 16:39; Start 12/24/16 at 23:45 Isosorbide Mononitrate (Imdur) 30 mg DAILY PO Last administered on 12/31/16 07 :51; Start 12/25/16 at 09:00 Magnesium Oxide (Magnesium Oxide) 400 mg DAILY PO Last administered on 07:51; Start 12/25/16 at 09:00 Nystatin (Mycostatin) 1 tiny BID TP Last administered on 12/31/16 19:42; Start 12/25/16 at 09:00 Pantoprazole Sodium (Protonix) 40 mg DAILYAC PO Last administered on 12/31/16 07:50; Start 12/25/16 at 07:30 Polyethylene Glycol (miraLAX) 17 gm DAILY PO Last administered on 12/31/16 07: 50; Start 12/25/16 at 09:00 Tamsulosin HCl (Flomax) 0.4 mg HS PO Last administered on 12/31/16 19:40; Start 12/25/16 at 21:00 Artificial Tears (Artificial Tears) 1 drop QID OU Last administered on 19:42; Start 12/25/16 at 09:00 Non-Formulary Medication 59 ml PRN DAILY PRN TP DRY SKIN / SCALING; Start at 23:00; Status UNV Non-Formulary Medication 1 puff BID IH ; Start 12/25/16 at 09:00; Stop 12/25/16 at 09:00; Status DC Insulin Detemir (Levemir) 10 units BID SQ Last administered on 12/31/16 19:43 ; Start 12/25/16 at 09:00 Non-Formulary Medication 118 ml PRN Q6HRS PRN TP PAIN; Start 12/24/16 at 23:00; Stop 12/24/16 at 23:51; Status DC Non-Formulary Medication 2 tab DAILY PO ; Start 12/25/16 at 09:00; Stop at 09:00; Status DC Artificial Tears (Artificial Tears) 1 drop PRN Q8HRS PRN OU DRY EYE; Start 12/24 at 23:45 Escitalopram Oxalate (Lexapro) 10 mg DAILY PO Last administered on 12/31/16 07 :50; Start 12/25/16 at 09:00 Lorazepam (Ativan) 0.5 mg PRN Q8HRS PRN PO ANXIETY / AGITATION Last administered on 12/25/16 09:23; Start 12/24/16 at 23:45 Quetiapine Fumarate (SEROquel) 12.5 mg BID PO Last administered on 12/28/16 08 :16; Start 12/25/16 at 09:00; Stop 12/28/16 at 15:03; Status DC Albuterol Sulfate (Ventolin) 2.5 mg RTQID NEB Last administered on 12/31/16 15 :26; Start 12/25/16 at 08:00 Budesonide (Pulmicort) 0.5 mg RTBID NEB Last administered on 12/31/16 09:20; Start 12/25/16 at 08:00 Olanzapine (ZyPREXA ZYDIS) 2.5 mg PRN Q2HR PRN PO ANXIETY / AGITATION; Start at 04:15 Haloperidol Lactate (Haldol) 5 mg 1X STAT IM Last administered on 12/25/16 11 :28; Start 12/25/16 at 11:28; Stop 12/25/16 at 11:29; Status DC Quetiapine Fumarate (SEROquel) 12.5 mg TID@0900,1400,1700 PO Last administered on 12/31/16 16:15; Start 12/28/16 at 17:00 Active Scripts Active Reported Zyprexa Zydis (Olanzapine) 5 Mg Tab.rapdis 2.5 Mg PO PRN Q2HR PRN Vitamin D2 (Ergocalciferol (Vitamin D2)) 50,000 Unit Capsule 50,000 Unit PO QWE Tamsulosin Hcl 0.4 Mg Cap.er.24h 0.4 Mg PO HS Systane Ultra 0.4-0.3% Eye Drp (Propylene Glycol/Peg 400) 10 Ml Drops 1 Drop EACHEYE PRN Q8HRS PRN Seroquel (Quetiapine Fumarate) 25 Mg Tablet 12.5 Mg PO BID Restasis (Cyclosporine) 1 Each Droperette 1 Drop EACHEYE BID Polyethylene Glycol 3350 255 Gm Powder 17 Gm PO DAILY Pantoprazole Sodium 40 Mg Tablet.dr 40 Mg PO DAILY Mucus ER (Guaifenesin) 600 Mg Tab.er.12h 600 Mg PO BID Hydrocodone-Apap 5-325 (Hydrocodone Bit/Acetaminophen) 1 Each Tablet 1 Tab PO PRN Q6HRS PRN Lorazepam 0.5 Mg Tablet 0.5 Mg PO PRN Q8HRS PRN Escitalopram Oxalate 10 Mg Tablet 10 Mg PO DAILY Isosorbide Mononitrate Er (Isosorbide Mononitrate) 30 Mg Tab.er.24h 30 Mg PO DAILY Artificial Tears (Dextran 70/Hypromellose) 1 Each Droperette 1 Each OP QID Advair 100-50 Diskus (Fluticasone/Salmeterol) 1 Each Disk.w.dev 1 Puff IH BID Furosemide 40 Mg Tablet 40 Mg PO QODAY Atorvastatin Calcium 20 Mg Tablet 20 Mg PO QHS Plavix (Clopidogrel Bisulfate) 75 Mg Tablet 1 Tab PO DAILY Oyster Shell 500 Mg + Vit D Tb (Calcium Carbonate/Vitamin D3) 1 Each Tablet 1 Each PO BID Omeprazole 20 Mg Tablet.dr 2 Tab PO DAILY Nystatin 15 Gm Cream..g. 1 Tiny TP BID Magnesium Oxide 400 Mg Tablet 1 Tab PO DAILY Lantus Solostar (Insulin Glargine,Hum.rec.anlog) 100 Unit/1 Ml Insuln.pen 10 Unit SQ BID Duoneb 0.5-3(2.5) Mg/3 Ml (Albuterol/Ipratropium) 3 Ml Ampul.neb 3 Ml NEB PRN Q6HRS PRN Vitamin B-12 (Cyanocobalamin (Vitamin B-12)) 1,000 Mcg Tablet 1 Tab PO DAILY Calcium Acetate 667 Mg Capsule 667 Mg PO TIDWMEALS Biofreeze (Menthol) 118 Ml Gel..ml. 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
[2017-01-01 06:24] VITALS: BP 167/69
[2017-01-01] MEDS: ALBUTEROL SULFATE 2.5 MG/3 ML NEBU. NEB SCH ×2 (08:00→11:11)
[2017-01-01] MEDS: POLYETHYLENE GLYCOL 3350 17 GM PACKET. PO SCH (08:27)
[2017-01-01 08:28] VITALS: BP 167/69
[2017-01-01] MEDS: MAGNESIUM OXIDE 400 MG TABLET PO SCH (08:28)
[2017-01-01] MEDS: ESCITALOPRAM 10 MG TABLET. PO SCH (08:28)
[2017-01-01] MEDS: PANTOPRAZOLE 40 MG TABLET. PO SCH (08:28)
[2017-01-01] MEDS: CYANOCOBALAMIN (VITAMIN B-12) 1,000 MCG TABLET. PO SCH (08:28)
[2017-01-01] MEDS: ISOSORBIDE MONONITRATE ER 30 MG TAB.ER.24H PO SCH (08:28)
[2017-01-01] MEDS: CALCIUM CARB/VIT D3 500/200 TABLET PO SCH (08:28)
[2017-01-01] MEDS: CALCIUM ACETATE 667 MG CAPSULE PO SCH ×2 (08:28→12:20)
[2017-01-01] MEDS: cycloSPORINE 0.05% OPTH 1 DROP DROPERETTE OU SCH (08:28)
[2017-01-01] MEDS: QUEtiapine 25 MG TABLET. PO SCH ×2 (08:29→12:20)
[2017-01-01] MEDS: POLYVINYL ALCOHOL 1.4% OPHTH SOLUTION 15ML BOTTLE. OU SCH ×2 (08:29→12:20)
[2017-01-01] MEDS: NYSTATIN 100,000 UNIT/GM TOPICAL CREAM 15GM TUBE. TP SCH (08:31)
[2017-01-01] MEDS: FUROSEMIDE 40 MG TABLET PO SCH (08:31)
[2017-01-01] MEDS: INSULIN DETEMIR 300 UNITS/3 ML INSULN.PEN. SQ SCH (08:33)
[2017-01-01] MEDS: BUDESONIDE 0.5 MG/2 ML NEBU NEB SCH (11:11)
--- NOTE | 2017-01-01 20:12 | PN ---
DATE: 12/31/2016 PSYCHIATRIC PROGRESS NOTE This is a late entry of 12/31/2016 covers elements not covered in my initial note. SUBJECTIVE: Overall, the patient has been pleasant and cooperative. REVIEW OF SYSTEMS: Ambulation impaired in his wheelchair. No CV, , pulmonary, eye system symptoms on review. I met with the patient evening of 12/31/2016. MENTAL STATUS EXAM: Oriented to himself and pleasant, cooperative. Speech coherent, anxious to go home. No suicidal or homicidal ideation, no aggression. LABORATORY DATA: Reviewed. IMPRESSION: Unchanged. PLAN: Continue psychotropics mentioned in my initial note. MAN Veronica TANG MD DR: GRETCHEN/errol JOB#: [id number] / [id number]
--- NOTE | 2017-01-02 19:55 | DS ---
DATE OF DISCHARGE: 01/01/2017 DISCHARGE SUMMARY/PSYCHIATRIC PROGRESS NOTE REASON FOR ADMISSION: Please refer to the admission history for details. Briefly, the patient is a 81-year-old male [facility] by his primary care physician on account of several day history of increased agitation, combativeness, noncompliance, anger, irritability. He had been extremely labile in his mood had failed outpatient psychiatric interventions with myself. Nursing staff from the residential had called me several times. We did attempted adjustments in his psychotropics, all of which failed resulting in his primary care physician referring him for inpatient stabilization. SIGNIFICANT FINDINGS AND CLINICAL COURSE: Following admission, the patient was seen daily individually by myself, followed medically per Dr. Sanders/Dr. Bhatti. Initially, he appeared confused, but in fact as the hospitalization progress he was not as confused as it appeared initially. He does have short-term memory deficits. Nevertheless, but was noted to be depressed, paranoid, labile, angry. Adjustments were made in his psychotropics and he seemed to respond to a combination of Lexapro 10 mg a day, Ativan 0.5 mg q.8 hours p.r.n., Seroquel 12.5 mg 3 times a day, Zyprexa Zydis p.r.n. Prior to discharge, he was not aggressive mood was stable. Ambulation impaired in a wheelchair. MENTAL STATUS EXAM: Oriented to himself and situation. Speech coherent, pleasant. Abstraction fair, computation impaired, language function intact. Short-term memory does have deficits. Mood and affect is much improved. LABORATORY DATA: Reviewed. FINAL DIAGNOSES: Major depressive disorder with psychotic features in partial remission; anxiety disorder, unspecified; impulse control disorder, unspecified; cognitive disorder, unspecified. DISCHARGE MEDICATIONS: Please refer to the MARD. DISCHARGE INSTRUCTIONS: Outpatient psychiatric and medical followup at the residential. MAN eVronica TANG MD DR: GRETCHEN/errol JOB#: [id number] / [id number]
== END 2017-01-01 13:00 | DRG 56 ==
LOC: GEROPSY 22:00
PROVIDERS: ADMIT Psychiatry & Neurology Psychiatry; ATTEND Psychiatry & Neurology Psychiatry
DX: G30.9 Alzheimer's disease, unspecified (principal); E43 Unspecified severe protein-calorie malnutrition; I62.03 Nontraumatic chronic subdural hemorrhage; F01.51 Vascular dementia, unspecified severity, with behavioral disturbance; F02.81 Dementia in other diseases classified elsewhere, unspecified severity, with behavioral disturbance; F33.41 Major depressive disorder, recurrent, in partial remission; S00.03XA Contusion of scalp, initial encounter; Z66 Do not resuscitate; F63.9 Impulse disorder, unspecified; F41.9 Anxiety disorder, unspecified; F50.89 Other specified eating disorder; J44.9 Chronic obstructive pulmonary disease, unspecified; H35.30 Unspecified macular degeneration; N40.0 Benign prostatic hyperplasia without lower urinary tract symptoms; W19.XXXA Unspecified fall, initial encounter; R45.1 Restlessness and agitation; I50.9 Heart failure, unspecified; I11.0 Hypertensive heart disease with heart failure; K21.9 Gastro-esophageal reflux disease without esophagitis; E11.9 Type 2 diabetes mellitus without complications; Z87.01 Personal history of pneumonia (recurrent); Z79.899 Other long term (current) drug therapy; Z87.440 Personal history of urinary (tract) infections; Z88.0 Allergy status to penicillin; Z88.8 Allergy status to other drugs, medicaments and biological substances; Z91.14 Patient's other noncompliance with medication regimen; Z79.82 Long term (current) use of aspirin; Y93.89 Activity, other specified; Y92.89 Other specified places as the place of occurrence of the external cause; Y99.8 Other external cause status; Z79.02 Long term (current) use of antithrombotics/antiplatelets; Z68.23 Body mass index [BMI] 23.0-23.9, adult
CPT/HCPCS: 36415; 70450; 80053; 80061; 81001; 82306; 82607; 82947; 83036; 83540; 83550; 83735; 84436; 84443; 84480; 85027; 86592; 86593; 93005; 94640; J1630; J1815; J7613; J7626

== ENCOUNTER 2017-05-04 19:43 | Emergency (ER) | payer MEDICARE, BC ==
[~2017-05-04] VITALS: Ht 175.3 cm; Wt 92.1 kg
[~2017-05-04 19:43] MED LIST changes: +ATOR20TA58 PO; +CYCL1DRO EACHEYE; +DEXT1DRO7 OU; +ERGO500027 PO; +ESCITALOPRAM OX10 MG PO; +FLUT1DIS IH; +FURO40TA4 PO; +GUAI600T6 PO; +HYDR-2758 PO; +ISOS30TA4 PO; +LORA0.5T PO; +OLAN5TAB5 PO; +PANT40TA5 PO; +POLY255P PO; +PROP10DR3 EACHEYE; +QUET25TA5 PO; +TAMS0.4C2 PO
--- NOTE | 2017-05-04 20:08 | PHYS DOC ---
Past History Past Medical History: Depression, Diabetes, GERD, Hypertension, Pneumonia, UTI Past Surgical History: Other Alcohol Use: None Drug Use: None Adult General Chief Complaint Chief Complaint: CHOKING HPI HPI Patient is a 81 year old M who presents with shortness of breath and choking. Patient was eating a [facility]amb[facility] and start choking on it. Patient went unresponsive and with a sternal rub he woke up however his O2 saturations were in the 60s and patient has needed to be on a nonrebreather ever since. Patient was transferred to the ER via EMS. Patient is to complain of shortness of breath. When you try to titrate the patient off the nonrebreather his O2 saturations drop into the low 80s. Patient sustained no other injuries. Patient has no other complaints. Patient is a DNR. Review of Systems Review of Systems GEN: Denies fevers, chills, sweats HEENT: Denies blurred vision, sore throat CV: Denies chest pain RESP: Shortness of breath GI: Denies n/v/d NEURO: Denies confusion, dizziness MSK: Denies weakness, joint pain/swelling Current Medications Current Medications Current Medications Medications (Trade) Dose Ordered Sig/Harper Start Time Stop Time Status Last Admin Dose Admin Clindamycin Phosphate 50 ml @ 100 mls/hr Q8HRS 05/04/17 22:00 UNV Allergies Allergies Allergies Coded Allergies Type Severity Reaction Last Updated Verified Penicillins Allergy Intermediate 03/15/16 Yes Physical Exam Physical Exam GEN.: Moderate distress. Alert and oriented. HEENT: Head is normocephalic, atraumatic NECK: Supple. LUNGS: Decreased breath sounds at the bases with coarse breath sounds in the upper lobes bilaterally. HEART: RRR, S1, S2 present. Peripheral pulses intact ABDOMEN: Soft, nontender. Positive bowel sounds. EXTREMITIES: Without any cyanosis. NEUROLOGIC: Normal speech, normal tone PSYCHIATRIC: Normal affect, normal mood. SKIN: No ulcerations Current Patient Data Vital Signs Laboratory Tests Test 05/04/17 20:10 White Blood Count 6.8 x10^3/uL Red Blood Count 4.08 x10^6/uL Hemoglobin 11.3 g/dL Hematocrit 34.7 % Mean Corpuscular Volume 85 fL Mean Corpuscular Hemoglobin 28 pg Mean Corpuscular Hemoglobin Concent 33 g/dL Red Cell Distribution Width 18.2 % Platelet Count 229 x10^3/uL Neutrophils (%) (Auto) 78 % Lymphocytes (%) (Auto) 10 % Monocytes (%) (Auto) 6 % Eosinophils (%) (Auto) 5 % Basophils (%) (Auto) 1 % Neutrophils # (Auto) 5.3 x10^3uL Lymphocytes # (Auto) 0.7 x10^3/uL Monocytes # (Auto) 0.4 x10^3/uL Eosinophils # (Auto) 0.3 x10^3/uL Basophils # (Auto) 0.1 x10^3/uL Sodium Level 143 mmol/L Potassium Level 4.2 mmol/L Chloride Level 105 mmol/L Carbon Dioxide Level 33 mmol/L Anion Gap 5 Blood Urea Nitrogen 33 mg/dL Creatinine 2.1 mg/dL Estimated GFR (Cockcroft-Gault) 30.6 BUN/Creatinine Ratio 16 Glucose Level 210 mg/dL Lactic Acid Level 0.8 mmol/L Calcium Level 8.4 mg/dL Total Bilirubin 0.3 mg/dL Aspartate Amino Transf (AST/SGOT) 30 U/L Alanine Aminotransferase (ALT/SGPT) 24 U/L Alkaline Phosphatase 108 U/L Troponin I Quantitative 0.025 ng/mL Total Protein 6.8 g/dL Albumin 2.2 g/dL Albumin/Globulin Ratio 0.5 Lipase 94 U/L Current Medications Medications (Trade) Dose Ordered Sig/Harper Route PRN Reason Start Time Stop Time Status Last Admin Dose Admin Clindamycin Phosphate 50 ml @ 100 mls/hr Q8HRS IV 05/04/17 20:15 05/04/17 21:02 EKG EKG 2000: EKG shows normal sinus rhythm rate of 80 no STEMI[] Radiology/Procedures Radiology/Procedures Chest x-ray shows left-sided pleural effusion[] Course & Med Decision Making Course & Med Decision Making Pertinent Labs and Imaging studies reviewed. (See chart for details) ED course: Patient was seen and examined emergency room septic workup was ordered 2132: Updated patient and on results and lab work. states that she told EMS to transfer the patient to [facility] however for whatever reason they brought him to [facility]. States that all his care has been out of [facility] and she would like him to go to [facility] if he is admitted to the hospital. states he had a swallow study done at [facility] that was abnormal. Patient is unable to be weaned off the nonrebreather and when it's titrated down he desaturates. 2137: Discussed CC/HP/PMH with Dr. Moser and recommends admit to the medical ICU MDM: After reviewing the chart, CC/HPI/PMH, physical exam, [lab results], [ radiological results], I believe the patient has aspiration pneumonitis contributing to his difficult deep breathing and hypoxia. Patient be transferred to [facility] for further evaluation and management. I believe the patient stable for transfer. [] Dragon Disclaimer Dragon Disclaimer This chart was dictated in whole or in part using Voice Recognition software in a busy, high-work load, and often noisy Emergency Department environment. It may contain unintended and wholly unrecognized errors or omissions. Departure Departure: Impression: Primary Impression: Aspiration pneumonitis Additional Impression: Hypoxia Disposition: 02 XFER T-[facility] (Dr. Nicolas @ [facility]) Condition: STABLE Referrals: MESFIN HIGGINS MD (PCP) Problem Qualifiers KANE GALLARDO DO May 04, 2017 20:08
[2017-05-04] MEDS ORDERED: CLINDAMYCIN 600MG PREMIX 50 ML IV SCH (20:15)
[2017-05-04 20:39] LABS: BASO # 0.1 x10^3/uL (0.0-0.2); BASO % 1 % (0-3); EOS # 0.3 x10^3/uL (0.0-0.7); EOS % 5 % (0-3); HEMATOCRIT 34.7 % (39.0-53.0); HEMOGLOBIN 11.3 g/dL (13.0-17.5); LYMPH # 0.7 x10^3/uL (1.0-4.8); LYMPH % 10 % (24-48); MEAN CORPUSCULAR HEMOGLOBIN 28 pg (25-35); MEAN CORPUSCULAR HGB CONC 33 g/dL (31-37); MEAN CORPUSCULAR VOLUME 85 fL (79-100); MONO # 0.4 x10^3/uL (0.0-1.1); MONO % 6 % (0-9); NEUT # 5.3 x10^3uL (1.8-7.7); NEUT % 78 % (31-73); PLATELET COUNT 229 x10^3/uL (140-400); RED BLOOD COUNT 4.08 x10^6/uL (4.30-5.70); RED CELL DISTRIBUTION WIDTH 18.2 % (11.5-14.5); WHITE BLOOD COUNT 6.8 x10^3/uL (4.0-11.0)
[2017-05-04 20:52] LABS: ALBUMIN 2.2 g/dL (3.4-5.0); ALBUMIN/GLOBULIN RATIO 0.5 (1.0-1.7); CALCIUM 8.4 mg/dL (8.5-10.1); CREATININE 2.1 mg/dL (0.7-1.3); GFR 30.6; POTASSIUM 4.2 mmol/L (3.5-5.1); TOTAL BILIRUBIN 0.3 mg/dL (0.2-1.0); TOTAL PROTEIN 6.8 g/dL (6.4-8.2)
[2017-05-04 23:19] VITALS: BP 125/69
--- NOTE | 2017-05-05 07:57 | RAD ---
Indication aspiration. Shortness of breath. 2 AP views of the chest were obtained. Comparison is made to the most recent examination available August 05, 2011. There is opacification at the left lung base base likely reflecting pleural fluid and atelectasis. Some additional volume loss is seen in the left midlung which may reflect passive atelectasis associated with pleural fluid at the left lung base. Underlying pneumonia is not entirely excluded. There is some nonspecific volume loss at the right lung base which may reflect atelectasis or pneumonia. Heart size appears minimally enlarged. There is no gross congestive heart failure. There is no pneumothorax. IMPRESSION: Volume loss in the left lung and patchy opacity at the right lung base. See above discussion.
--- NOTE | 2017-05-05 10:01 | EKG ---
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
== END 2017-05-04 23:32 | disposition short-term general hospital (02) ==
LOC: ER 19:43
DX: J69.0 Pneumonitis due to inhalation of food and vomit (principal); R09.02 Hypoxemia; K21.9 Gastro-esophageal reflux disease without esophagitis; I10 Essential (primary) hypertension; F32.9 Major depressive disorder, single episode, unspecified; E11.9 Type 2 diabetes mellitus without complications; Z87.440 Personal history of urinary (tract) infections; Z88.0 Allergy status to penicillin
CPT/HCPCS: 36415; 71010; 80053; 83605; 83690; 84484; 85025; 87040; 87205; 93005; 96365; 99285; J3490